=== PATIENT | female | born 1955 | race Caucasian/White ===

== ENCOUNTER → 2016-09-20 | Outpatient (CLI) | payer MEDICARE | END | disposition home or self-care (01) | LOC: LABPAT 09:04 | PROVIDERS: ATTEND Orthopaedic Surgery | DX: Z01.812 Encounter for preprocedural laboratory examination (principal) | CPT/HCPCS: 87070 ==

== ENCOUNTER 2016-10-22 09:53 | Inpatient (IN) | payer MEDICARE ==
[2016-10-15 11:59] VITALS: BMI 29.1
--- NOTE | 2016-10-21 12:01 | HP ---
DATE OF ADMISSION: 10/22/2016 Gabby Sanchez is a 61-year-old patient seen with symptomatic right knee osteoarthritis. After having treatment options discussed, she elected to proceed with right total knee arthroplasty. Consent was obtained. Medical clearance was provided by Dr. Sheldon. Past medical history is hypothyroidism, osteoarthritis, seizure disorder. Past surgical history is spinal surgery. DAILY MEDICATIONS: 1. Aspirin. 2. Dilantin. 3. Tegretol. 4. Thyroid. Allergies are none reported. SOCIAL HISTORY: Patient denies tobacco use. Physical evaluation of the right knee: Range of motion is -3/4 to 95 degrees, tenderness along the lateral joint line with a positive lateral Gema's. There is crepitus along the patellofemoral and lateral compartments with range of motion. Ligaments are stable. Hip rotation is without pain. Distal neurovascular exam is intact. Radiographs of the right knee revealed severe lateral moderate patellofemoral compartment osteoarthritis. IMPRESSION: Right knee osteoarthritis. PLAN: Right total knee arthroplasty.
[~2016-10-22 09:53] MED LIST: ACETAMINOPHEN TAB 500 MG TAB PO ONE; DEXAMETHASONE SOD PHOSPHATE 10 MG/ML 1 ML VIAL IV ONE; LACTATED RINGERS 1,000 ML IV SCH; MELOXICAM 7.5 MG TAB PO ONE; ONDANSETRON 4 MG/2 ML VIAL IVP ONE; SCOPOLAMINE 1.5MG/72HR PATCH TRANSDERM ONE; TRANEXAMIC ACID 1,000 MG in SODIUM CHLORIDE 0.9% 100 ML IVPB ONE; fentaNYL (PF) 50 MCG/ML 2 ML AMP IV PRN
[2016-10-22] MEDS ORDERED: LIDOCAINE 1% 20 ML VIAL (10MG/ML) FOR IV START INTRADERMA ONE (10:40)
[2016-10-22] MEDS: MIDAZOLAM 2 MG/2 ML VIAL IV PRN ×2 (11:04→11:11)
[2016-10-22] MEDS ORDERED: ROPIVACAINE 1,100 MG, SODIUM CHLORIDE 0.9% 330 ML MISCELLANE PRN ×2 (11:19)
--- NOTE | 2016-10-22 11:21 | P.ONQ ---
Anesthesiology Proc Note - PNB - Peripheral Nerve Block Performed Right Adductor Canal Time Out Performed: Yes Procedure Start Time: 11:00 Procedure Stop Time: 11:30 Indication: Analgesia Sedation Type: Sedate with meaningful contact maintained Preparation: Sterile Prep Position: Supine Catheter: Indwelling Needle Types: On-Q Needle Size: 50mm (2") Needle Gauge: 18 Technique: Ultrasound Injectate: 0.5% Ropivacaine (see comment for volume) Blood Aspirated: No Pain Paresthesia on Injection Noted: No Resistance on Injection: Normal Events: Uneventful and Well Tolerated
[2016-10-22] MEDS ORDERED: SODIUM CHLORIDE 0.9% 100 ML BAG ONE (12:52)
[2016-10-22] MEDS ORDERED: PROPOFOL 10 MG/ML 20 ML VIAL IV ONE (12:52)
[2016-10-22] MEDS ORDERED: LIDOCAINE 1% INJ 10MG/ML (20 ML MDV) ONE (12:52)
[2016-10-22] MEDS ORDERED: TRANEXAMIC ACID 1,000 MG/10 ML VIAL ONE (12:52)
[2016-10-22] MEDS ORDERED: fentaNYL (PF) 50 MCG/ML 2 ML AMP ONE (12:52)
[2016-10-22] MEDS ORDERED: diphenhydrAMINE 50 MG/ML 1 ML VIAL ONE (12:52)
[2016-10-22] MEDS ORDERED: MIDAZOLAM 2 MG/2 ML VIAL ONE (12:52)
[2016-10-22] MEDS ORDERED: ROPIVACAINE 246.25 MG, EPINEPHrine 0.5 MG, KETOROLAC 30 MG, cloNIDine HCL/PF 80 MCG, WA... MISCELLANE ONE ×5 (12:59)
[2016-10-22] MEDS: ceFAZolin 2 GM in SODIUM CHLORIDE 0.9% 100 ML IVPB ONE ×2 (13:12→13:36)
[2016-10-22] MEDS: ROPIVACAINE 246.25 MG, EPINEPHrine 0.5 MG, KETOROLAC 30 MG, cloNIDine HCL/PF 80 MCG, WA... MISCELLANE ONE ×10 (13:29→14:11)
[2016-10-22] MEDS ORDERED: ceFAZolin 3,000 MG in SODIUM CHLORIDE 0.9% IRRIGATIO 3,000 ML IRRIGATION ONE (13:32)
[2016-10-22] MEDS ORDERED: LACTATED RINGERS 1,000 ML IV ONE ×2 (13:54→15:28)
--- NOTE | 2016-10-22 14:58 | P.OP ---
Date of Procedure: 10/22/16 Preoperative Diagnosis: Right knee osteoarthritis Postoperative Diagnosis: Right knee osteoarthritis Procedure(s) Performed: Right total knee arthroplasty Implants: 1. Nida persona size 6 right narrow cruciate retaining cemented femoral component 2. Nida persona size D right cemented tibial component 3. Nida persona 10 mm medial congruent 4. Nida persona 35 mm cemented all polyethylene patella Anesthesia: regional (Adductor canal block), local, spinal Surgeon: Siddahrth Barrera [employer] Stewardess #1: Flavio Bailey Estimated Blood Loss (ml): 125 Pathology: none sent Condition: stable Disposition: PACU Indications for Procedure: 61-year-old patient seen with symptomatic right knee osteoarthritis. After having treatment options discussed, she elected to proceed with right total knee arthroplasty. Operative Findings: see description of procedure Description of Procedure: Patient was taken to the operative suite after having an adductor canal block performed by the department of anesthesia. Patient underwent a spinal anesthetic by the department of anesthesia. Patient was given preoperative IV intake antibiotics and TXA. A well-padded tourniquet was placed about the right lower extremity. The lower extremity was then prepped and draped in the normal sterile orthopedic fashion. The extremity was elevated, a tourniquet was insufflated to 350. A standard anterior incision was made sharply through skin. Dissection was taken down through the subcutaneous soft tissues down to the extensor mechanism. A medial arthrotomy was performed, patella was everted and knee was flexed. There was advanced osteoarthritis noted. A proximal tibial cutting guide was positioned. Proximal tibial cut was made. A distal intramedullary femoral cutting guide was positioned, distal femoral cut made. We placed the appropriate sizing guide and selected the appropriate size. A distal 4-in-1 femoral cutting block was positioned, distal femoral cuts were made. We now placed a trial femoral component into position, along with an appropriate size tibial tray and insert. We now took the knee through range of motion and had full extension good flexion and good overall soft tissue balance noted. The patella was everted and a flush cut made with patellar quad tendon. We templated the patella, appropriate drill holes were made. An appropriate trial patella was positioned, knee was taken through full range of motion with the patella tracking very nicely. The trial patella was removed. Drill holes were made through the femoral component. All trial components were removed after marking off the appropriate rotation of the tibia. Retractors were now positioned along the proximal tibia. An appropriate keel punch was made with the appropriate size tibial guide. At this point appropriate size implants were chosen and opened. The joint was irrigated copiously with pulse lavage mechanical irrigation. The deep soft tissues were infiltrated with local analgesic. We mixed antibiotic methylmethacrylate. Once the methyl methacrylate was ready, the tibial component was cemented into place removing any excess methylmethacrylate. The femoral component was cemented into place removing the removing any excess methylmethacrylate. We then inserted the appropriate size polyethylene tibial insert. We made sure that it was locked into position. We took the knee into full extension, and then back in a flexion making sure we had removed any excess methylmethacrylate. The patellar component was then cemented down and secured with clamp. Excess methylmethacrylate removed. We kept the knee in full extension, patellar clamp in position until methylmethacrylate had hardened. Once it had hardened the patellar clamp was removed. The knee was taken through full range of motion. The patella tracked nicely. There was good soft tissue balancing. The tourniquet was now released. Additional hemostasis was achieved via electrocautery. A second gram of TXA was given. The wound was irrigated with pulse lavage mechanical irrigation. The superficial soft tissues were infiltrated local analgesic. The extensor mechanism was repaired with Vicryl. We checked the repair with range of motion and it was stable. The subcutaneous soft tissues were repaired with Vicryl in layers. The skin was approximated with pernio/Dermabond. Sterile dressings were applied followed by loose web roll and Conner bandage. The patient was transferred to a bed, and taken to recovery in stable and satisfactory condition. Flavio VAUGHN assisted with the procedure.
[2016-10-22] MEDS ORDERED: ONDANSETRON 4 MG/2 ML VIAL IVP PRN (14:59)
[2016-10-22] MEDS ORDERED: HYDROcodone/APAP 7.5-325MG 1 EACH TAB PO PRN (14:59)
[2016-10-22] MEDS ORDERED: hydrOXYzine PAMOATE 25 MG CAP PO PRN (14:59)
[2016-10-22] MEDS ORDERED: HYDROmorphone 1 MG/ML 1 ML SYRINGE IVP PRN ×3 (14:59)
[2016-10-22] MEDS ORDERED: TEMAZEPAM 15 MG CAP PO PRN (14:59)
[2016-10-22] MEDS ORDERED: NALOXONE 0.4 MG/ML 1 ML VIAL IV PRN (14:59)
[2016-10-22] MEDS ORDERED: ROPIVACAINE 5 MG/ML 30 ML VIAL MISCELLANE ONE (15:28)
[2016-10-22 15:51] VITALS: RESP 16
--- NOTE | 2016-10-22 15:54 | XR ---
EXAMINATION TYPE: XR knee limited RT DATE OF EXAM: 10/22/2016 3:49 PM CLINICAL HISTORY: Postoperative evaluation Two views of the right knee are submitted. Identified are changes of total knee arthroplasty with femoral and tibial components appearing well seated. Postsurgical soft tissue changes are noted. Alignment is anatomic.
[2016-10-22] MEDS ORDERED: ACETAMINOPHEN TAB 500 MG TAB PO PRN (16:34)
[2016-10-22] MEDS ORDERED: PHENYTOIN SODIUM EXTENDED 100 MG CAP PO SCH ×2 (16:45→21:00)
[2016-10-22] MEDS ORDERED: LEVOTHYROXINE 75 MCG TAB PO SCH (16:45)
[2016-10-22] MEDS: traMADol 50 MG TAB PO SCH ×2 (19:14→23:41)
[2016-10-22] MEDS: LACTATED RINGERS 1,000 ML IV SCH ×2 (19:14→19:15)
[2016-10-22] MEDS: SENNOSIDES-DOCUSATE SODIUM 1 EACH TAB PO SCH (20:21)
[2016-10-22] MEDS ORDERED: carBAMazepine 200 MG TAB PO SCH (21:00)
[2016-10-22] MEDS: DILANTIN 100MG PO SCH (21:08)
[2016-10-22] MEDS: CARBAMAZEPINE 200 MG PO SCH (21:08)
[2016-10-22] MEDS: ceFAZolin 2 GM in SODIUM CHLORIDE 0.9% 100 ML IVPB SCH (23:35)
[2016-10-23] MEDS: LEVOTHYROXINE 0.075 MG PO SCH (05:20)
[2016-10-23] MEDS: CARBAMAZEPINE 200 MG PO SCH ×2 (07:07→20:08)
[2016-10-23] MEDS: DILANTIN 100MG PO SCH ×2 (07:07→20:09)
[2016-10-23 07:36] LABS: Basophils % (A) 0 %; CH 31.9; CHCM 34.1; Eosinophils # (A) 0.1 k/uL (0-0.7); Eosinophils % (A) 1 %; HCT 35.7 % (34.0-46.0); HDW 2.46; Luc # (Auto) 0.06; Luc % (Auto) 1; Lymphocytes # (A) 0.7 k/uL (1.0-4.8); Lymphocytes % (A) 9 %; MCH 31.5 pg (25.0-35.0); MCHC 33.5 g/dL (31.0-37.0); MCV 93.8 fL (80.0-100.0); Mean Platelet Volume 6.6; Monocytes # (A) 0.5 k/uL (0-1.0); Monocytes % (A) 6 %; Neutrophils # (A) 6.4 k/uL (1.3-7.7); Neutrophils % (A) 83 %; RDW 12.8 % (11.5-15.5); WBC 7.7 k/uL (3.8-10.6); WBC (Perox) 8.32
[2016-10-23] MEDS: ceFAZolin 2 GM in SODIUM CHLORIDE 0.9% 100 ML IVPB SCH (08:20)
[2016-10-23] MEDS: FAMOTIDINE 20 MG TAB PO SCH (08:20)
[2016-10-23] MEDS: ENOXAPARIN 30 MG/0.3 ML SYRINGE SQ SCH ×2 (08:20→20:08)
[2016-10-23] MEDS: MELOXICAM 7.5 MG TAB PO SCH (08:21)
[2016-10-23] MEDS: HYDROcodone/APAP 7.5-325MG 1 EACH TAB PO PRN ×3 (08:21→20:08)
--- NOTE | 2016-10-23 09:10 | CONS ---
DATE OF CONSULTATION: REASON FOR CONSULTATION: Advice regarding hypothyroidism, seizure disorder and multiple medical issues requested by Dr. Barrera. HISTORY OF PRESENT ILLNESS: This 61-year-old woman with a past history of seizures, hypothyroidism, history back surgery, DJD being followed by Dr. Sheldon in the outpatient setting underwent right total knee arthroplasty by Dr. Barrera. The patient tolerated the procedure well. There is no history of fever, rigors. No history of headache, loss of consciousness, seizures. Of note, the patient has had recurrent seizures. The patient has allergies to multiple ingredients and additives. Patient apparently is on the antiepileptic medication including Dilantin as well as carbamazepine. The last seizure was about a few months back. There is no history of fevers, rigors. No history of history, loss of consciousness, seizure. PAST MEDICAL HISTORY: History of seizures, history of hypothyroidism, history of epilepsy, history of back surgery, DJD. Medications prior to admission, including home medications, are: 1. Tylenol 500 mg q.6 p.r.n. 2. Tegretol 400 mg p.o. b.i.d. 3. Dilantin 100 mg p.o. daily and 300 mg q.h.s. 4. Synthroid 75 mg p.o. daily. ALLERGIES: CARBAMAZEPINE, PHENYTOIN, PRIMIDONE, VALPROIC ACID, HYDROMORPHONE, ARTIFICIAL FLAVORING, ASPIRIN, MSG AND NARCOTICS. FAMILY HISTORY: History of cancer in the family. SOCIAL HISTORY: No history of smoking, no history of alcohol. REVIEW OF SYSTEMS: ENT: No diminished vision. No diminished hearing. CARDIOVASCULAR: No angina. RESPIRATORY: No cough or hemoptysis. GI: No nausea. : No dysuria. NERVOUS SYSTEM: No numbness or weakness. ALLERGY/IMMUNOLOGY: No asthma or hayfever. MUSCULOSKELETAL: As mentioned earlier. HEMATOLOGY: No history of anemia. ENDOCRINE: As mentioned earlier. CONSTITUTIONAL: As mentioned earlier. DERMATOLOGY: Negative. RHEUMATOLOGY: As mentioned earlier. PHYSICAL EXAMINATION: Patient is alert and oriented x3. Pulse 88, blood pressure 115/56, respirations 16, temperature 97 degrees, pulse ox 97% on room air. HEENT: Conjunctivae normal. NECK: No jugular venous distention. CARDIOVASCULAR: S1 and S2. RESPIRATORY: Breath sounds diminished at the bases. No rhonchi, no crackles. ABDOMEN: Soft, nontender, no mass palpable. LEGS: Status post right knee arthroplasty. NERVOUS SYSTEM: Higher function as mentioned. Moves all four limbs. No focal motor deficits. LYMPHATIC: No lymphadenopathy in the neck, axillae or groin. SKIN: No ulcer, rash or bleeding. Labs are CBC recently done within normal limits. PT, INR normal. BMP shows magnesium 2.4, alk phos 130, triglycerides 169, cholesterol 267, LDL is 183. UA shows was reviewed. The phenytoin level was 11.4 and 6.7. ASSESSMENT: 1. Status post right total knee arthroplasty. 2. Seizure disorder. 3. Hypothyroidism. 4. Hyperlipidemia. 5. Back surgery. 6. Cholecystectomy. 7. History of brain surgery for seizure disorder. 8. Right shoulder arthroplasty. RECOMMENDATIONS AND DISCUSSION: In this 61-year-old woman who presented after surgery, at this time I recommend to reinstitute the home medication of Dilantin and Tegretol. I would also recommend the patient to take patient's own medications because of concerns of additives and other issues. The patient also reports significant allergy to food additives and I also recommended to check with dietary and continue to monitor. Otherwise, I would recommend the patient to follow up with Dr. Sheldon regarding the hyperlipidemia. Otherwise, we will follow the patient closely with you and the patient may be asked to follow up with Dr. Sheldon after discharge. Thank you Dr. Barrera for letting us participate in the care of this patient. DVT prophylaxis. Incentive spirometry as well. MTDD
[2016-10-23] MEDS: LACTATED RINGERS 1,000 ML IV SCH ×2 (10:24→18:28)
--- NOTE | 2016-10-23 11:51 | P.PN ---
Subjective Principal diagnosis: Status post right total knee arthroplasty Patient is seen today resting in her hospital chair, she appears to be in no acute distress. Patient's pain is well-controlled with current regimen. She is ambulated well with therapy. She denies headaches, lightheadedness, chest pain, shortness of breath, nausea or vomiting. Objective - Vital Signs Vital signs: Vital Signs Temp 97.7 F 10/23/16 07:00 Pulse 78 10/23/16 08:00 Resp 16 10/23/16 08:00 BP 127/60 10/23/16 07:00 Pulse Ox 97 10/23/16 07:00 Intake & Output 10/22/16 10/23/16 10/23/16 18:59 06:59 18:59 Intake Total 5580 1200 240 Output Total 400 1100 275 Balance 5180 100 -35 Weight 79.379 kg 79.379 kg Intake: IV 5100 1200 Lactated Ringers 1,000 ml 1200 @ 100 mls/hr IV .Q10H FATUMA Rx#:[id number] Oral 480 240 Output: Urine 275 1100 275 Uretheral (Ryan) 1100 Estimated Blood Loss 125 Other: Voiding Method Indwelling Catheter Indwelling Catheter Indwelling Catheter - Exam Right lower extremity: Incision is clean, dry and intact. Minimal ecchymosis present on the medial and lateral aspects of the incision. Calf is soft, no tenderness with palpation. Plantar flexion, dorsiflexion, EHL, FHL are intact. Sensory exam to light touch throughout the extremities intact. Cap refills less than 3 seconds. - Labs CBC & Chem 7: 10/23/16 07:02 Labs: Abnormal Lab Results - Last 24 Hours (Table) 10/23/16 Range/Units 07:02 Lymphocytes # 0.7 L (1.0-4.8) k/uL Assessment and Plan Plan: Assessment: 1. Postop day #1 status post right total knee arthroplasty Plan: 1. Pain control, we'll discharge home on oral medication 2. Will have home therapy and CPM after discharge 3. Daily dressing changes/ice and elevate 4. GI and DVT prophylaxis, we'll discharge home on aspirin 325 mg twice a day 5. Medical recommendations 6. Discharge planning: Patient will be discharged home today Time with Patient: Less than 30
[2016-10-23] MEDS: MULTIVITAMINS, THERA 1 EACH TAB PO SCH (12:27)
[2016-10-23] MEDS: traMADol 50 MG TAB PO SCH ×4 (12:27→21:05)
--- NOTE | 2016-10-23 15:09 | PN ---
DATE OF SERVICE: 10/23/2016 This is a 61-year-old woman who was admitted after right total knee arthroplasty, improving significantly. No chest pain or palpitations. No fever. On exam, alert and oriented x3. Pulse 78, blood pressure 127/60, respirations 16, temperature 97.7, pulse ox 96% on room air. HEENT: Conjunctivae normal. NECK: No jugular venous distension. CARDIOVASCULAR SYSTEM: S1, S2, muffled. RESPIRATORY: Breath sounds diminished at the bases, no rhonchi, no crackles. ABDOMEN: Soft. EXTREMITIES: Legs status post right knee arthroplasty. NERVOUS SYSTEM: No focal deficits. Labs are CBC within normal limits. ASSESSMENT: 1. Status post right total knee arthroplasty. 2. Seizure disorder. 3. Hypothyroidism. 4. Hyperlipidemia. 5. History of back surgery. 6. History of cholecystectomy. 7. History of brain surgery for seizure disorder. 8. Right shoulder arthroplasty. RECOMMENDATION AND DISCUSSION: Recommend to continue current medications. Continue with the monitoring and symptomatic treatment. Otherwise, closely follow with the primary physician in the outpatient setting. Resume the home medications. Continue the antiseizure medications. Further recommendations to follow.
[2016-10-23] MEDS: SENNOSIDES-DOCUSATE SODIUM 1 EACH TAB PO SCH (20:09)
[2016-10-24 01:47] VITALS: PULSE 90
[2016-10-24] MEDS: HYDROcodone/APAP 7.5-325MG 1 EACH TAB PO PRN (02:17)
[2016-10-24] MEDS: LACTATED RINGERS 1,000 ML IV SCH (05:46)
[2016-10-24] MEDS: LEVOTHYROXINE 0.075 MG PO SCH (05:47)
[2016-10-24] MEDS: CARBAMAZEPINE 200 MG PO SCH (06:32)
[2016-10-24] MEDS: DILANTIN 100MG PO SCH (06:33)
[2016-10-24 07:44] VITALS: BP 129/80; TEMP 98.4
[2016-10-24] MEDS: FAMOTIDINE 20 MG TAB PO SCH (08:22)
[2016-10-24] MEDS: ENOXAPARIN 30 MG/0.3 ML SYRINGE SQ SCH (08:22)
[2016-10-24] MEDS: MELOXICAM 7.5 MG TAB PO SCH (08:23)
--- NOTE | 2016-10-24 09:22 | P.PN ---
Progress Note - Text The patient is status post right adductor canal catheter placement. The catheter was placed for postoperative pain control, status post total right arthroplasty. Ropivacaine 0.2% is infusing at 10 mLs per hour. The patient has no complaints of right lower extremity numbness or weakness. Patient's VAS score is[ 2-3]-10. Assessment: Patient's adductor canal catheter is in place and working appropriately. Plan: continue infusion and adjust it as needed.
[2016-10-24] MEDS: traMADol 50 MG TAB PO SCH ×2 (10:19→12:31)
--- NOTE | 2016-10-24 11:43 | P.PN ---
Subjective Principal diagnosis: Status post right total knee arthroplasty Patient is seen today resting in her hospital chair, she appears to be in no acute distress. Patient's pain is well-controlled with current regimen. She is ambulated well with therapy. Patient has noticed slight increase in swelling in the lower extremity. She denies headaches, lightheadedness, chest pain, shortness of breath, nausea or vomiting. Objective - Vital Signs Vital signs: Vital Signs Temp 98.4 F 10/24/16 07:00 Pulse 90 10/24/16 07:35 Resp 16 10/24/16 07:35 BP 129/80 10/24/16 07:00 Pulse Ox 95 10/24/16 07:00 Intake & Output 10/23/16 10/24/16 10/24/16 18:59 06:59 18:59 Intake Total 480 400 Output Total 277 1 Balance 203 400 -1 Weight 79.379 kg 79.379 kg Intake: Oral 480 400 Output: Urine 277 1 Other: Voiding Method Indwelling Catheter Toilet Toilet # Voids 1 3 3 - Exam Right lower extremity: Incision is clean, dry and intact. Minimal ecchymosis present on the medial and lateral aspects of the incision. Soft tissue swelling noted surrounding the knee, also into the calf . Calf is soft, no tenderness with palpation. Plantar flexion, dorsiflexion, EHL, FHL are intact. Sensory exam to light touch throughout the extremities intact. Cap refills less than 3 seconds. - Labs CBC & Chem 7: 10/23/16 07:02 Assessment and Plan Plan: Assessment: 1. Postop day #2 status post right total knee arthroplasty Plan: 1. Pain control, will continue oral medication 2. Will have home therapy and CPM after discharge 3. Daily dressing changes/ice and elevate 4. GI and DVT prophylaxis, we'll discharge home on aspirin 325 mg twice a day 5. Medical recommendations 6. We'll order lower extremity Doppler to rule out DVT 7. Discharge planning: Patient will be likely discharged home today Time with Patient: Less than 30
--- NOTE | 2016-10-24 11:46 | P.DS ---
Providers Date of admission: 10/22/16 09:53 Expected date of discharge: 10/24/16 Attending physician: Siddharth Barrera Consults: 10/22/16 14:59 Consult Physician Routine Consulting Provider: Kristie Juan Consult Reason/Comments: Medical management Do you want consulting provider notified?: Yes Primary care physician: Stated None Hospital Course: Date of admission: 10/22/2016 Date of discharge: 10/24/2016 Admission diagnosis: Status post right total knee arthroplasty Discharge diagnosis: Same Attending physician: Dr. Barrera Surgical procedures: Right total knee arthroplasty Brief history: Patient is a 61-year-old female with a history of progressive primary right knee osteoarthritis. At this point patient has failed conservative treatment measures and has opted to proceed with a elective right total knee arthroplasty. Hospital course: Details of patient's surgery can be found in operative report. Patient tolerated the procedure well and was subsequently transported to orthopedic floor. Patient's orthopeidc and medical care was provided daily. Patient had daily laboratory tests performed for evaluation of overall blood counts. Patient had daily physical therapy to include strengthening range of motion as well as education with walker ambulation. Patient had daily CPM usage as part of their physical therapy program. Patient was treated with Lovenox for their postoperative DVT prophylaxis during their inpatient stay. Patient was noted to have a relatively uneventful postoperative course. Patient reported satisfactory pain control with oral pain medications by postoperative day 0. Patient showed satisfactory progress with physical therapy. Patient moved steadily through the program and had no difficulty meeting the goals by postoperative day 2. Given patient's otherwise satisfactory course and having met physical therapy goals, plan is to discharge patient home on postoperative day 2. Discharge condition/disposition: Patient will be discharged home in stable condition. Discharge medications: Instructions are given on resumption of patient's normal daily medications per primary care recommendation, in addition patient will be prescribed [place] 7.5 mg/325 mg, Pepcid 20 mg, Colace 100 mg, aspirin 325 mg. Discharge instructions: 1. Wound care and infection precautions, keep incision dry and covered while showering, no lotions, creams, moisturizers. No soaking, tubs, pools, hottubs. Do not scrub over the incision. 2. Weight-bear as tolerated with walker / cane until follow-up. 3. Ice and elevate when necessary. Do not exceed 20 minutes per hour with ice pack. 4. Utilize compression sleeve until seen at first follow up appointment. 5. Visiting nursing care. 6. Home physical therapy including home CPM. 7. Pain meds and anticoagulants per prescription. 8. Pain medication has potential to cause constipation. Increase oral fluid and fiber intake. Contact primary care provider if you have not had a bowel movement within 48 hours after discharge 9. No anti-inflammatory medication until discussed at first post operative visit, this including Motrin, Aleve, Mobic, Diclofenac. 10. Follow up in office at 2 weeks postop with Anselmo Bailey PA-C 11. Follow up with your primary care doctor 7-10 days after discharge. 12. Contact [facility] with any questions, . Procedures: Right total knee arthroplasty Patient Condition at Discharge: Good Plan - Discharge Summary New Discharge Prescriptions: Aspirin 325 mg PO BID #60 tab Docusate [Colace] 100 mg PO DAILY #20 capsule Famotidine [Pepcid] 20 mg PO DAILY #30 tablet HYDROcodone/APAP 7.5-325MG [[place] 7.5] 1 each PO Q6HR PRN #60 tab PRN Reason: Pain Discharge Medication List Phenytoin Sodium Extended [Dilantin] 300 mg PO HS 07/27/14 [History] carBAMazepine [TEGretol] 400 mg PO BID 07/27/14 [History] Levothyroxine Sodium [Synthroid] 75 mcg PO DAILY 01/02/16 [History] Phenytoin Sodium Extended [Dilantin] 100 mg PO DAILY 01/02/16 [History] Acetaminophen [Tylenol] 500 mg PO Q6H PRN 10/15/16 [History] Aspirin 325 mg PO BID #60 tab 10/23/16 [Rx] Docusate [Colace] 100 mg PO DAILY #20 capsule 10/23/16 [Rx] Famotidine [Pepcid] 20 mg PO DAILY #30 tablet 10/23/16 [Rx] HYDROcodone/APAP 7.5-325MG [[place] 7.5] 1 each PO Q6HR PRN #60 tab 10/23/16 [Rx] Follow up Appointment(s)/Referral(s): Flavio Bailey PAC [PHYSICIAN [facility]] - 11/07/16 2:00 pm Patient Instructions/Handouts: Joint Replacement Surgery (DC) Activity/Diet/Wound Care/Special Instructions: [facility] - walk[facility] to be delivered to pt room. [facility] with any questions [phone] Orthopedic Discharge Instructions: 1. Wound care and infection precautions, keep incision dry and covered while showering, no lotions, creams, moisturizers. No soaking, pools, hot tubs. Do not scrub over incision. 2. Weight-bear as tolerated with walker / cane until follow-up. 3. Ice and elevate when necessary. Do not exceed 20 minutes per hour with ice pack. 4. Utilize compression sleeve until seen at first follow up appointment. 5. Visiting nursing care. 6. Home physical therapy including home CPM. 7. Pain meds and anticoagulants per prescription. 8. Pain medication has potential to cause constipation. Increase oral fluid and fiber intake. Contact primary care provider if you have not had a bowel movement within 48 hours after discharge. 9. No anti-inflammatory medication until discussed at first post operative visit, this including Motrin, Aleve, Mobic, Diclofenac. 10. Follow up in office at 2 weeks postop with Anselmo Bailey PA-C 11. Follow up with your primary care doctor 7-10 days after discharge. 12. Contact [facility] with any questions, . Pain catheter instructions: 1. Home nursing please remove pain catheter on 10/25/2016, okay to remove on if empty Discharge Disposition: HOME WITH HOME HEALTH SERVICES
--- NOTE | 2016-10-24 12:16 | US ---
EXAMINATION TYPE: US venous doppler duplex LE RT DATE OF EXAM: 10/24/2016 12:08 PM COMPARISON: NONE CLINICAL HISTORY: post op swelling. SIDE PERFORMED: VESSELS IMAGED: External Iliac Vein (EIV) Common Femoral Vein Deep Femoral Vein Greater Saphenous Vein * Femoral Vein Popliteal Vein Small Saphenous Vein * Proximal Calf Veins (* superficial vessels) TECHNOLOGIST IMPRESSION: wnl Right Leg: Negative for DVT No popliteal fossa lesion is seen. IMPRESSION: THIS EXAMINATION IS NEGATIVE FOR DVT WITHIN THE RIGHT LEG.
[2016-10-24] MEDS: MULTIVITAMINS, THERA 1 EACH TAB PO SCH (12:31)
--- NOTE | 2016-10-24 16:24 | PN ---
This 61-year-old woman was admitted after right total knee joint arthroplasty is improving significantly. The patient has right leg swelling. No chest pain. No palpitations. No fever. On exam, alert and oriented x3. Pulse 86, blood pressure 109/80, respirations 16, temperature 98.4, pulse ox 94% on room air. HEENT: Conjunctivae normal. NECK: No jugular venous distention. CARDIOVASCULAR: S1, S2 muffled. RESPIRATORY: Breath sounds diminished at the bases. ABDOMEN: Soft. Right leg swelling and right knee arthroplasty present. Nervous system: No focal deficits. Labs are noted. ASSESSMENT: 1. Status post right total knee arthroplasty. 2. Seizure disorder. 3. Hypothyroidism. 4. Hyperlipidemia. 5. History of back surgery. 6. Cholecystectomy. 7. History of brain surgery seizure disorder. 8. Right shoulder arthroplasty. RECOMMENDATIONS AND DISCUSSION: Recommend to continue current medications. Continue with monitoring, symptomatic treatment. I would also recommend of the leg and resume the rest of the medications at home. I would recommend close follow up with primary physician in outpatient setting. Resume the seizure medications. The rest of the recommendations per orthopedic surgery. MTDD
== END 2016-10-24 14:05 | disposition home health service (06) | DRG 470 ==
LOC: 2ORMAIN 09:53 → 3SUR 14:51
PROVIDERS: ADMIT Orthopaedic Surgery; ATTEND Orthopaedic Surgery
PROC: 3E0T3CZ (ICD-10-PCS; 2016-10-22)
PROC: 0SRC0J9 Replacement of Right Knee Joint with Synthetic Substitute, Cemented, Open Approach (ICD-10-PCS; principal; 2016-10-22 12:40)
DX: M17.11 Unilateral primary osteoarthritis, right knee (principal); E03.9 Hypothyroidism, unspecified; E78.5 Hyperlipidemia, unspecified; G40.909 Epilepsy, unspecified, not intractable, without status epilepticus; Z90.49 Acquired absence of other specified parts of digestive tract; Z96.611 Presence of right artificial shoulder joint; Z79.899 Other long term (current) drug therapy
CPT/HCPCS: 85025; 88300

== ENCOUNTER → 2017-03-18 | Outpatient (CLI) | payer MEDICARE ==
--- NOTE | 2017-03-18 13:31 | XR ---
EXAMINATION TYPE: XR foot complete LT DATE OF EXAM: 03/18/2017 CLINICAL HISTORY: Foot in particular first toe pain swelling after injury last week. Cellulitis per o rder. TECHNIQUE: Frontal, lateral, and oblique images of the left foot are obtained. COMPARISON: None FINDINGS: Osseous structures are demineralized which is noted to lower radiographic sensitivity. There is acute oblique nondisplaced intra-articular fracture through the medial dorsal aspect of the first proximal phalanx. There is additional comminuted acute nondisplaced intra-articular fracture through the base of the fi rst distal phalanx seen on frontal and oblique images with linear lucency and cortical disruption pre sent. Joint spaces are preserved. There is mild diffuse subcutaneous edema with slightly more prominent mod erate swelling in the left first toe. There is large inferior calcaneal spur. IMPRESSION: There are acute intra-articular fractures involving base of first distal phalanx and do rsal medial aspect of first proximal phalanx. Ordering physician assistant sales center manager made aware of fracture findings at time of dictation. (Initial encounter close type post traumatic fracture).
== END ==
LOC: RADXRYALE 10:44
PROVIDERS: ATTEND Physician Assistant Medical
DX: S92.422A Displaced fracture of distal phalanx of left great toe, initial encounter for closed fracture (principal); S92.412A Displaced fracture of proximal phalanx of left great toe, initial encounter for closed fracture

== ENCOUNTER → 2017-06-05 | Outpatient (CLI) | payer MEDICARE ==
--- NOTE | 2017-06-06 11:03 | MM ---
Reason for exam: screening (asymptomatic). Last mammogram was performed 1 year ago. History: Patient is postmenopausal and is nulliparous. Family history of breast cancer in mother at age 64, breast cancer in sister at age 30, and breast cancer in paternal cousin. Physical Findings: A clinical breast exam by your physician is recommended on an annual basis and results should be correlated with mammographic findings. MG Screening Mammo w CAD Bilateral CC and MLO view(s) were taken. Prior study comparison: June 04, 2016, bilateral MG 3d screening mammo w/cad. June 07, 2015, bilateral MG screening mammo w CAD. May 29, 2013, bilateral digital screening mammo w/CAD. The breast tissue is heterogeneously dense. This may lower the sensitivity of mammography. No suspicious abnormality. No significant changes when compared with prior studies. ASSESSMENT: Negative, BI-RAD 1 RECOMMENDATION: Routine screening mammogram of both breasts in 1 year.
== END | disposition home or self-care (01) ==
LOC: RADMAMWWP 07:45
PROVIDERS: ATTEND Family Medicine
DX: Z12.31 Encounter for screening mammogram for malignant neoplasm of breast (principal)

== ENCOUNTER 2017-09-12 10:37 | Day surgery (SDC) | payer MEDICARE ==
[2017-09-04 23:22] VITALS: BMI 25.8
--- NOTE | 2017-09-11 15:39 | HP ---
HISTORY AND PHYSICAL DATE OF SERVICE: 09/12/2017 Gabby Sanchez is a 62-year-old patient seen with progressive left knee pain. After having treatment options discussed, she elected to proceed with left knee arthroscopy. Consent regarding the procedure was obtained. Medical clearance was provided by Dr. Sheldon. PAST MEDICAL HISTORY: Hypothyroidism, seizure activity. PAST SURGICAL HISTORY: Spinal surgery.. DAILY MEDICATIONS: 1. Dilantin. 2. Tegretol. 3. Thyroid. 4. Dorr. ALLERGIES: None reported. SOCIAL HISTORY: Patient denies current tobacco use. PHYSICAL EVALUATION: Left knee range of motion is 0 to 110 degrees. Tenderness medial joint line, tenderness lateral joint line. Positive medial Gema's. Positive lateral Gema's. There is crepitus along the medial, lateral and patellofemoral compartments with range of motion. Ligaments stable. Hip rotation without pain. Distal neurovascular exam is intact. RADIOGRAPHS: The left knee revealed moderate osteoarthritis. An MRI of the left knee revealed medial and lateral meniscal tears. IMPRESSION: Internal derangement, left knee with medial and lateral meniscal tears. PLAN: Left knee arthroscopy with partial medial and lateral meniscectomy as well as debridement. MMODL / IJN: [id number] /
[~2017-09-12 10:37] MED LIST changes: -ACETAMINOPHEN TAB 500 MG TAB PO ONE; +LIDOCAINE 1% 20 ML VIAL (10MG/ML) FOR IV START INTRADERMA PRN; -MELOXICAM 7.5 MG TAB PO ONE; +MIDAZOLAM 2 MG/2 ML VIAL IV PRN; +MORPHINE SULFATE 4 MG/ML SYRINGE IV PRN; -TRANEXAMIC ACID 1,000 MG in SODIUM CHLORIDE 0.9% 100 ML IVPB ONE; +ceFAZolin IN SWFI 2 GM/20 ML SYRINGE IVP ONE; -fentaNYL (PF) 50 MCG/ML 2 ML AMP IV PRN
[2017-09-12] MEDS ORDERED: SUCCINYLCHOLINE CHLORIDE 100 MG/5 ML SYR IV ONE (12:19)
[2017-09-12] MEDS ORDERED: PROPOFOL 10 MG/ML 20 ML VIAL IV ONE (12:19)
[2017-09-12] MEDS ORDERED: MIDAZOLAM 2 MG/2 ML VIAL ONE (12:19)
[2017-09-12] MEDS ORDERED: LIDOCAINE 1% INJ 10MG/ML (20 ML MDV) ONE (12:19)
[2017-09-12] MEDS ORDERED: fentaNYL (PF) 50 MCG/ML 2 ML AMP ONE (12:19)
[2017-09-12] MEDS ORDERED: BUPIVACAINE (PF) 0.25% 30 ML VIAL SQ ONE ×2 (12:47→13:00)
--- NOTE | 2017-09-12 13:22 | P.OP ---
Date of Procedure: 09/12/17 Preoperative Diagnosis: Internal derangement left knee Postoperative Diagnosis: 1. Tear medial and lateral meniscus left knee 2. 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 Grade 3 chondromalacia patella left knee 4. Partial ACL tear left knee 5. Reactive synovitis medial and suprapatellar compartments left knee Procedure(s) Performed: 1. Arthroscopic partial medial and lateral meniscectomy left knee 2. Arthroscopic chondroplasty medial tibial plateau left knee 3. Arthroscopic chondroplasty patella left knee 4. Arthroscopic debridement partial ACL tear left knee 5. Arthroscopic partial synovectomy medial and suprapatellar compartments left knee Anesthesia: JOHNA, local Surgeon: Siddharth Barrera Estimated Blood Loss (ml): 10 Pathology: none sent Condition: stable Disposition: PACU Indications for Procedure: 62-year-old patient seen with progressive left knee pain. After having treatment options discussed, she elected to proceed with arthroscopy. Operative Findings: see description of procedure Description of Procedure: Patient was taken to the operative suite. Patient underwent a general anesthetic by the department of anesthesia. Patient was given preoperative antibiotics. The left lower extremity was placed in a well-padded arthroscopic leg le. The left leg was prepped and draped in the normal sterile orthopedic fashion. A lateral parapatellar and suprapatellar incision was made. Trochars were inserted. Arthroscopy was initiated. Suprapatellar pouch revealed diffuse thick reactive synovitis. The patellofemoral joint appeared to articulate congruently. There was grade 3 chondromalacia of the patella with osteochondral tears present. The scope was guided into the medial gutter. No loose bodies or plica were identified. The scope was then guided into the medial compartment. A medial parapatellar incision was made. Trocar inserted followed by probe. There was a complex tear posterior horn medial meniscus. There were grade 2 chondromalacia changes of the tibial plateau with osteochondral tears present. There was reactive synovitis anteriorly. I performed a partial medial meniscectomy down to stable tissue. I performed a chondroplasty of the tibial plateau down to stable tissue followed by partial synovectomy. The residual meniscus and osteochondral surfaces were probed and found to be stable. Scope and probe were then guided into the intercondylar notch. Cruciates were identified, probed and found to have some superficial partial tearing of the anterior cruciate ligament. I used a motorized shaver and debrided that down to stable tissue. The remaining ACL appeared stable without 30-40% loss. PCL was stable.. The scope and probe were then guided into lateral compartment. There was superficial tearing of the anterior horn and midbody and posterior horn lateral meniscus. There was no chondromalacia or synovitis. I performed a partial lateral meniscectomy down to stable tissue. Once this was completed the meniscus was probed and found to be stable but there was some chondromalacia present of the tibial plateau, grade 2-3. No osteochondral tears. The scope was in guided back into the suprapatellar compartment. I introduced a motorized shaver into the super patellar compartment. I debrided meniscal fragments I encountered. I performed a chondroplasty of the patella down to stable tissue. I performed a partial synovectomy. Shaver was removed. I took one more look on the entire knee, no residual debris. Instruments were now removed from the joint. The joint was infiltrated with .25% Marcaine. Steri-Strips were applied to the portal sites. Sterile dressings were applied. The patient was placed into a EDNA hose. No tourniquet was utilized. The patient was awakened, transferred to a bed and taken to recovery stable satisfactory condition.
[2017-09-12 13:24] VITALS: TEMP 97.1
[2017-09-12] MEDS ORDERED: ONDANSETRON 4 MG/2 ML VIAL IVP ONE (13:31)
[2017-09-12] MEDS ORDERED: HYDROmorphone 2 MG/ML 1 ML SYRINGE IVP ONE ×2 (13:31→13:38)
[2017-09-12 13:33] VITALS: RESP 18
[2017-09-12] MEDS ORDERED: LACTATED RINGERS 1,000 ML IV ONE (13:46)
[2017-09-12 14:55] VITALS: BP 114/65; PULSE 52
== END 2017-09-12 15:17 | disposition home or self-care (01) ==
LOC: OR 10:37
PROVIDERS: ATTEND Orthopaedic Surgery
DX: S83.232A Complex tear of medial meniscus, current injury, left knee, initial encounter (principal); S83.282A Other tear of lateral meniscus, current injury, left knee, initial encounter; M94.262 Chondromalacia, left knee; M22.42 Chondromalacia patellae, left knee; S83.512A Sprain of anterior cruciate ligament of left knee, initial encounter; X58.XXXA Exposure to other specified factors, initial encounter; M65.862 Other synovitis and tenosynovitis, left lower leg; M17.12 Unilateral primary osteoarthritis, left knee; G40.909 Epilepsy, unspecified, not intractable, without status epilepticus; E03.9 Hypothyroidism, unspecified; E78.5 Hyperlipidemia, unspecified; Z79.1 Long term (current) use of non-steroidal anti-inflammatories (NSAID); Z79.899 Other long term (current) drug therapy; Z79.891 Long term (current) use of opiate analgesic; Z88.8 Allergy status to other drugs, medicaments and biological substances; Z88.6 Allergy status to analgesic agent; Z88.5 Allergy status to narcotic agent
CPT/HCPCS: 29880; J2250; J1170; J1100; J0690; J2405; J2001; J3010; J0330; J2704

== ENCOUNTER → 2017-12-03 | Outpatient (CLI) | payer MEDICARE ==
--- NOTE | 2017-12-03 12:36 | XR ---
EXAMINATION TYPE: XR lumbosacral spine min 4V DATE OF EXAM: 12/03/2017 COMPARISON: NONE HISTORY: Lumbago, pain left leg TECHNIQUE: Five-view lumbar spine FINDINGS: Spondylosis is present. There 5 lumbar-type vertebral bodies. The pedicles are intact. Ther e is a grade 1 spondylolisthesis of L4 anterior and L5. Posterior disc space narrowing is present L3- 4. IMPRESSION: 1. No acute osseous abnormality. 2. Spondylolisthesis of L4 anterior and L5. 3. Degenerative disc changes. 4. Consider MRI lumbar spine for additional evaluation of left leg pain.
== END ==
LOC: RADXRYALE 11:05
PROVIDERS: ATTEND Physician Assistant Medical
DX: M43.16 Spondylolisthesis, lumbar region (principal); M47.816 Spondylosis without myelopathy or radiculopathy, lumbar region
CPT/HCPCS: 72110

== ENCOUNTER → 2018-12-02 | Outpatient (CLI) | payer MEDICARE ==
--- NOTE | 2018-12-02 13:08 | MM ---
Reason for exam: screening (asymptomatic). Last mammogram was performed 1 year and 6 months ago. History: Patient is postmenopausal and is nulliparous. Family history of breast cancer in mother at age 64, breast cancer in sister at age 30, and breast cancer in paternal cousin. Physical Findings: A clinical breast exam by your physician is recommended on an annual basis and results should be correlated with mammographic findings. MG Screening Mammo w CAD Bilateral CC and MLO view(s) were taken. Prior study comparison: June 05, 2017, bilateral MG screening mammo w CAD. June 04, 2016, bilateral MG 3d screening mammo w/cad. There are scattered fibroglandular densities. Benign appearing bilateral calcifications. No significant changes when compared with prior studies. ASSESSMENT: Benign, BI-RAD 2 RECOMMENDATION: Routine screening mammogram of both breasts in 1 year.
== END | disposition home or self-care (01) ==
LOC: RADMAMWWP 06-06 06:53
PROVIDERS: ATTEND Family Medicine
DX: Z53.9 Procedure and treatment not carried out, unspecified reason (principal)
CPT/HCPCS: 77067

== ENCOUNTER → 2020-05-10 | Outpatient (CLI) | payer MEDICARE ==
--- NOTE | 2020-05-10 14:09 | XR ---
EXAMINATION TYPE: XR knee complete LT DATE OF EXAM: 05/10/2020 COMPARISON: None HISTORY: Knee pain TECHNIQUE: Three-view left knee FINDINGS: No acute fractures or dislocations are evident. The patella appears to be high riding. No j oint effusion is evident. No acute fractures or dislocations are evident. There is degenerative phipps e lateral compartment. IMPRESSION: 1. Consider patella karthikeyan. 2. No acute osseous abnormality. 3. Mild degenerative changes lateral compartment left knee joint space
== END | disposition home or self-care (01) ==
LOC: RADXRYALE 11:12
PROVIDERS: ATTEND Physician Assistant Medical
DX: M17.12 Unilateral primary osteoarthritis, left knee (principal)

== ENCOUNTER → 2020-05-17 | Outpatient (CLI) | payer MEDICARE | END | disposition home or self-care (01) | LOC: LABPAT 09:59 | PROVIDERS: ATTEND Orthopaedic Surgery | DX: Z22.322 Carrier or suspected carrier of Methicillin resistant Staphylococcus aureus (principal); M17.12 Unilateral primary osteoarthritis, left knee | CPT/HCPCS: 87070 ==

== ENCOUNTER 2020-07-11 09:44 | Day surgery (SDC) | payer MEDICARE ==
[2020-07-08 11:18] VITALS: BMI 29.0
--- NOTE | 2020-07-10 11:26 | HP ---
HISTORY AND PHYSICAL REASON FOR ADMISSION: Surgery is 07/11/2020 HISTORY OF PRESENT ILLNESS: Gabby Sanchez is a 65-year-old patient seen with symptomatic left knee osteoarthritis. We discussed options for treatment. She elected to proceed with left total knee arthroplasty. Consent regarding the procedure was obtained. Medical clearance was provided Dr. Sheldon. PAST MEDICAL HISTORY: Hypothyroidism, seizure disorder. PAST SURGICAL HISTORY: Cholecystectomy, left knee arthroscopy, right total knee arthroplasty, lumbar spine surgery. MEDICATIONS: Dilantin, ibuprofen, Tegretol. ALLERGIES: Are none known. SOCIAL HISTORY: She denies current tobacco use. PHYSICAL EXAMINATION: Evaluation of the left knee: Her range of motion is -2/3-130. Tenderness lateral joint line. Crepitus on lateral patellofemoral compartment with range of motion. Pain with patellofemoral compression. Ligaments stable. Hip rotation without pain. Distal neurovascular exam intact. RADIOGRAPHS: Radiographs of the left knee reveal severe osteoarthritic changes. IMPRESSION: 1. Left knee osteoarthritis. 2. Hypothyroidism. 3. Seizure disorder. PLAN: Left total knee arthroplasty. Surgery is 07/11/2020. MMODL / IJN: [id number] /
[~2020-07-11 09:44] MED LIST changes: +ACETAMINOPHEN TAB 500 MG TAB PO ONE; -DEXAMETHASONE SOD PHOSPHATE 10 MG/ML 1 ML VIAL IV ONE; +DEXAMETHASONE SOD PHOSPHATE 4 MG/ML 1 ML VIAL IV ONE; -LIDOCAINE 1% 20 ML VIAL (10MG/ML) FOR IV START INTRADERMA PRN; +MELOXICAM 7.5 MG TAB PO ONE; -MORPHINE SULFATE 4 MG/ML SYRINGE IV PRN; +ROPIVACAINE 246.25 MG, EPINEPHrine 0.5 MG, KETOROLAC 30 MG, cloNIDine HCL/PF 80 MCG, WA... MISCELLANE ONE; +TRANEXAMIC ACID 1,000 MG in SODIUM CHLORIDE 0.9% 100 ML IVPB ONE; -ceFAZolin IN SWFI 2 GM/20 ML SYRINGE IVP ONE; +fentaNYL (PF) 50 MCG/ML 2 ML AMP IV PRN
[2020-07-11] MEDS ORDERED: LIDOCAINE 1% (10MG/ML) FOR IV START INTRADERMA ONE (10:25)
[2020-07-11] MEDS ORDERED: fentaNYL (PF) 50 MCG/ML 2 ML AMP IVP ONE ×2 (10:46→11:00)
--- NOTE | 2020-07-11 11:20 | P.ANPRN ---
Procedure Note - Anesthesia - Nerve Block Performed Left Adductor Canal Infusion Time Out Performed: Yes (1046) Date of Procedure: 07/11/20 Procedure Start Time: 10:47 Procedure Stop Time: 10:53 Location of Patient: PreOp Indication: Acute Post-Operative Pain, Requested by Surgeon Specifically requested for management of pain by DrMarianne: Siddharth Barrera Sedation Type: Sedate with meaningful contact maintained Preparation: Sterile Prep Position: Supine Catheter Depth at Skin (cm): 7 Catheter: Indwelling Needle Types: Pajunk Needle Gauge: 21 Ultrasound used to visualize needle placement: Yes Ultrasound used to observe medication spread: Yes Injectate: 0.5% Ropivacaine (see comment for volume) Blood Aspirated: No Pain Paresthesia on Injection Noted: No Resistance on Injection: Normal Image Stored and Saved: Yes Events: Uneventful and Well Tolerated
[2020-07-11] MEDS ORDERED: TRANEXAMIC ACID 1,000 MG/10 ML VIAL ONE (12:38)
[2020-07-11] MEDS ORDERED: fentaNYL (PF) 50 MCG/ML 2 ML AMP ONE (12:38)
[2020-07-11] MEDS ORDERED: ePHEDrine SULFATE/0.9% NACL/PF 50 MG/5 ML SYRINGE IV ONE (12:38)
[2020-07-11] MEDS ORDERED: SODIUM CHLORIDE 0.9% 100 ML BAG ONE (12:38)
[2020-07-11] MEDS ORDERED: MIDAZOLAM 2 MG/2 ML VIAL ONE (12:38)
[2020-07-11] MEDS ORDERED: PROPOFOL 10 MG/ML 20 ML VIAL IV ONE (12:38)
[2020-07-11] MEDS ORDERED: LIDOCAINE 1% INJ 10MG/ML (20 ML MDV) ONE (12:38)
[2020-07-11] MEDS ORDERED: ceFAZolin 1,000 MG in SODIUM CHLORIDE 0.9% 1,000 ML IRRIGATION ONE (13:10)
[2020-07-11] MEDS ORDERED: LACTATED RINGERS 1,000 ML IV ONE (13:27)
[2020-07-11] MEDS ORDERED: HYDROmorphone 0.5 MG/0.5 ML SYRINGE IVP PRN ×2 (14:15)
[2020-07-11] MEDS ORDERED: ONDANSETRON 4 MG/2 ML VIAL IVP PRN (14:15)
[2020-07-11] MEDS ORDERED: HYDROcodone/APAP 5-325MG 1 EACH TAB PO PRN ×2 (14:15)
[2020-07-11] MEDS ORDERED: NALOXONE 0.4 MG/ML 1 ML VIAL IV PRN (14:15)
[2020-07-11] MEDS ORDERED: HYDROmorphone 1 MG/ML 1 ML SYRINGE IVP PRN (14:15)
--- NOTE | 2020-07-11 14:15 | P.OP ---
Date of Procedure: 07/11/20 Preoperative Diagnosis: Left knee osteoarthritis Postoperative Diagnosis: Left knee osteoarthritis Procedure(s) Performed: Left total knee arthroplasty Implants: 1. Depuy attune size 5 narrow left fixed bearing cemented femur 2. Depuy attune size 4 fixed bearing cemented tibial baseplate 3. Depuy attune size 5 fixed bearing cruciate retaining 5 mm polyethylene tibial insert 4. Depuy attune 35 mm all polyethylene cemented patella Anesthesia: regional (Adductor canal catheter), local, spinal Surgeon: Siddharth Barrera Materials Manager #1: Flavio Bailey Estimated Blood Loss (ml): 45 Pathology: other (Bone) Condition: stable Disposition: PACU Indications for Procedure: 65-year-old patient seen with symptomatic left knee osteoarthritis. After treatment options were discussed, she elected to proceed with total knee arth roplasty. Operative Findings: See description of procedure Description of Procedure: Patient was taken to the operative suite after having an adductor canal catheter placed by the department of anesthesia. Patient underwent a spinal anesthetic by the department of anesthesia. Patient was given preoperative IV intake antibiotics and TXA. A well-padded tourniquet was placed about the left lower extremity. The lower extremity was then prepped and draped in the normal sterile orthopedic fashion. The extremity was elevated, a tourniquet was i nsufflated to 300. A standard anterior incision was made sharply through skin. Dissection was taken down through the subcutaneous soft tissues down to the extensor mechanism. A medial arthrotomy was performed, patella was everted and knee was flexed. There was advanced osteoarthritis noted. I introduced my distal intramedullary femoral drill. I then introduced the distal femoral cutting jig. Anselmo VAUGHN secured the cutting jig with 2 pins. I held retractors in position while Anselmo VAUGHN performed the distal femoral resection through the guide area we now removed her distal femoral cutting guide. We now placed our 4-in-1 femoral cutting block and positioned and it was secured with 2 pins by Anselmo VAUGHN while I held the block in position. The distal femoral finishing was now completed. A proximal tibial cutting guide was positioned. I held the guide in the appropriate position with both hands well Anselmo VAUGHN inserted stabilizing pins into the guide. Proximal tibial cut was made. We now placed a trial femoral component into position, along with an appropriate size tibial tray and insert. We now took the knee through range of motion and had full extension good flexion and good overall soft tissue balance noted. The patella was everted and stabilized with 2 towel clips held by Anselmo VAUGHN while I performed a flush with patellar quad tendon utilizing a fresh sawblade. We templated the patella, appropriate drill holes were made. An appropriate trial patella was positioned, knee was taken through full range of motion with the patella tracking very nicely. The trial patella was removed. Drill holes were made through the femoral component. All trial components were removed after marking off the appropriate rotation of the tibia. Retractors wer e now positioned along the proximal tibia. An appropriate keel punch was made with the appropriate size tibial guide by myself on Anselmo VAUGHN assisted by holding retractors. At this point appropriate size implants were chosen and opened. The joint was irrigated copiously with pulse lavage mechanical irrigation. The posterior capsule was infiltrated with local analgesic. The wound was irrigated with pulse lavage mechanical irrigation. We mixed antibiotic methylmethacrylate. We placed the knee into flexion. We placed multiple retractors assisted by Anselmo VAUGHN to expose the proximal tibia. Once the methyl methacrylate was ready, the tibial component was cemented into place removing any excess methylmethacrylate form by both myself and Anselmo VAUGHN. The femoral component was cemented into place removing the removing any excess methylmethacrylate performed by both myself and Anselmo VAUGHN. We then inserted the appropriate size polyethylene tibial insert. We made sure that it was locked into position. We took the knee into full extension, and then back in a flexion making sure we had removed any excess methylmethacrylate. The patellar component was then cemented down and secured with clamp. Excess methylmethacrylate removed. We kept the knee in full extension, patellar clamp in position until methylmethacrylate had hardened. Once it had hardened the patellar clamp was removed. The knee was taken through full range of motion. The patella tracked nicely. There was good soft tissue balancing. The tourniquet was now released. Additional hemostasis was achieved via electrocautery. A second gram of TXA was given. The wound again was irrigated with pulse lavage mechanical irrigation. The superficial soft tissues were infiltrated local analgesic. The extensor mechanism was repaired with Vicryl. We checked the repair with range of motion and it was stable. The subcutaneous soft tissues were repaired with Vicryl in layers. The skin was approximated with pernio/Dermabond. Sterile dressings were applied followed by loose web roll and Conner bandage. The patient was transferred to a bed, and taken to recovery in stable and satisfactory condition. Anselmo VAUGHN assisted with this complex procedure.
[2020-07-11] MEDS ORDERED: ROPIVACAINE 0.2%-NS ON-Q PUMP 1,090 MG, EMPTY PAIN BALL 1 EACH MISCELLANE PRN (14:26)
--- NOTE | 2020-07-11 15:27 | XR ---
EXAMINATION TYPE: XR knee limited LT DATE OF EXAM: 07/11/2020 CLINICAL HISTORY: Left knee pain and arthritis status post total knee replacement. TECHNIQUE: Portable AP and crosstable lateral views of the left knee are obtained immediately postop eratively. COMPARISON: Left knee x-ray May 10, 2020 FINDINGS: Metallic hardware from total left knee arthroplasty is seen and appears satisfactory in al ignment and position. There is evidence of recent surgery with diffuse subcutaneous gas and soft tis zbigniew swelling and overlying vertical skin joanna. [place] osseous structures are demineralized. IMPRESSION: METALLIC HARDWARE FROM TOTAL LEFT KNEE ARTHROPLASTY IS SATISFACTORY IN ALIGNMENT.
[2020-07-11] MEDS ORDERED: PHENYTOIN SODIUM EXTENDED 100 MG CAP PO SCH ×3 (17:45→21:00)
[2020-07-11] MEDS: LACTATED RINGERS 1,000 ML IV SCH (18:11)
[2020-07-11] MEDS: LEVOTHYROXINE 75 MCG TAB PO SCH (18:23)
[2020-07-11] MEDS: carBAMazepine 200 MG TAB PO SCH (20:10)
[2020-07-11] MEDS: ENOXAPARIN 30 MG/0.3 ML SYRINGE SQ SCH (20:10)
[2020-07-11] MEDS ORDERED: SENNOSIDES-DOCUSATE SODIUM 1 EACH TAB PO SCH (21:00)
[2020-07-12] MEDS: LACTATED RINGERS 1,000 ML IV SCH ×2 (00:20→08:48)
[2020-07-12 01:34] VITALS: TEMP 97.9
[2020-07-12] MEDS: LEVOTHYROXINE 75 MCG TAB PO SCH (05:26)
--- NOTE | 2020-07-12 07:01 | CONS ---
CONSULTATION DATE OF SERVICE: 07/11/2020 REASON FOR CONSULTATION: Advice regarding seizure disorder and other multiple medical issues requested by Dr. Barrera. 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 Gage Sheldon in the outpatient setting had a seizure about 1 month ago. Apparently, she is very sensitive to food additives and one of the friends baked a cake with unknown food additive and the patient developed a seizure. The patient is very careful about taking additional food substances also. The patient has also allergy to multiple generic medications, but the patient is able to take her own medications without any severe allergic reaction at this time. There is no history of fever, rigors. No history of headache, loss of consciousness, seizures at this time. PAST MEDICAL HISTORY: History of DJD, seizure disorder, hypothyroidism, history of brain surgery. MEDICATIONS: Medications prior to admission include: Tegretol 400 mg b.i.d., Dilantin 300 mg at bedtime, Synthroid 75 mcg p.o. daily, Tylenol p.r.n., Dilantin 100 mg daily and ibuprofen 800 mg q.8 p.r.n. ALLERGIES: CARBAMAZEPINE, PHENOBARBITAL, PHENYTOIN, DEPAKENE, DILAUDID, ARTIFICIAL FLAVORING, ASPIRIN, MSG, CAFFEINE, SODIUM NITRATE, NARCOTICS. FAMILY HISTORY: History of cancer in the family. SOCIAL HISTORY: No history of smoking. No history of alcohol intake. REVIEW OF SYSTEMS: ENT: No diminished hearing or diminished vision. CARDIOVASCULAR SYSTEM: No angina. RESPIRATORY SYSTEM: As mentioned earlier. GI: As mentioned earlier. : No dysuria. NERVOUS SYSTEM: No numbness or weakness, otherwise, mentioned earlier. ALLERGY/IMMUNOLOGY: No asthma or hayfever. MUSCULOSKELETAL: As mentioned earlier. HEMATOLOGY: No history of anemia. ENDOCRINE: Hypothyroidism. CONSTITUTIONAL: As mentioned earlier. DERMATOLOGY: Negative. RHEUMATOLOGY: Negative. PSYCHIATRY: As mentioned earlier. PHYSICAL EXAMINATION: The patient is alert and oriented x3. Pulse 103, blood pressure 130/78, respiration 18, temperature 98 degrees, pulse ox 97% on room air. HEENT: Conjunctivae normal. NECK: No jugular venous distention. CARDIOVASCULAR: S1, S2 muffled. RESPIRATORY: Breath sounds diminished at the bases. No rhonchi, no crackles. ABDOMEN: Soft. Nontender. No mass palpable. LEGS: No edema. No swelling. NERVOUS SYSTEM: No focal deficits. EXAMINATION OF THE LEFT KNEE: Status post knee joint arthroplasty. LABS: CBC within normal limits. Chemistry noted. Cholesterol is 267, LDL 189. ASSESSMENT: 1. Status post left total knee arthroplasty. 2. History of seizures. 3. Hyperlipidemia. 4. Hypothyroidism. 5. History of cholecystectomy. 6. 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 7. FULL CODE. RECOMMENDATIONS AND DISCUSSION: This 65-year-old woman who presented with multiple medical issues, at this time I recommend to continue the current medications, continue symptomatic treatment. Home medication may be continued and cautious diet because of the patient's food allergies. Otherwise, DVT prophylaxis, incentive spirometry. I would also recommend follow up with primary physician regarding the hyperlipidemia, also the cholesterol was found to be 267 and LDL is 189 in October of this year, might need repeat checkup. Further recommendations to follow. Please send a copy of dictation to Dr. Sheldon's office. Thank you Dr. Barrera for letting us participate in the care of this patient. MMODL / IJN: [id number] /
--- NOTE | 2020-07-12 08:02 | P.PN ---
Progress Note - Text The patient is status post left adductor canal catheter placement. The catheter was placed for postoperative pain control, status post total left arthroplasty. Ropivacaine 0.2% is infusing at 8 mLs per hour. The patient has no complaints of left lower extremity numbness or weakness. Patient's VAS score is 1-2-10. Assessment: Patient's adductor canal catheter is in place and working appropriately. Plan: continue infusion and adjust it as needed.
[2020-07-12] MEDS: carBAMazepine 200 MG TAB PO SCH (08:46)
[2020-07-12] MEDS: ENOXAPARIN 30 MG/0.3 ML SYRINGE SQ SCH (08:48)
[2020-07-12 08:50] VITALS: BP 115/71; PULSE 83; RESP 18
[2020-07-12] MEDS ORDERED: MELOXICAM 7.5 MG TAB PO SCH (09:00)
--- NOTE | 2020-07-12 09:33 | P.PN ---
Subjective Progress Note Date: 07/12/20 Principal diagnosis: status post left total knee arthroplasty Patient evaluated at bedside, she is resting comfortably. She's very well physical therapy. Her pain is well-controlled. She denies any headaches, lightheadedness, chest pain, shortness of breath, nausea or vomiting, fever or chills. Objective - Vital Signs Vital signs: Vital Signs Temp 97.9 F 07/12/20 07:30 Pulse 83 07/12/20 07:30 Resp 18 07/12/20 07:30 BP 115/71 07/12/20 07:30 Pulse Ox 96 07/12/20 07:30 Intake & Output 07/11/20 07/12/20 07/12/20 18:59 06:59 18:59 Intake Total 1451 150 Output Total 45 Balance 1406 150 Weight 75 kg Intake: IV 1451 Intake, IV Titration 150 Amount Lactated Ringers 1,000 ml 150 @ 100 mls/hr IV .Q10H FATUMA Rx#:[id number] Output: Estimated Blood Loss 45 Other: Voiding Method Bedside Commode # Voids 1 - Exam Left lower extremity: Incision is clean, dry, and intact. The foam dressing is in good condition. There is minimal soft tissue swelling and ecchymosis surrounding the medial and lateral aspects of the incision. Calf is soft, no tenderness with palpation. Plantar flexion, dorsiflexion, EHL, FHL are intact. Sensory exam to light touch throughout the extremity is intact, dorsal pedis pulses 2+. Assessment and Plan Assessment: Status post left total knee arthroplasty Plan: Pain control, plan for discharge home on [place] 7.5/325 mg. Discussed use of [id number] Tylenol DVT prophylaxis, Xarelto 10 mg for 12 days Wound care was discussed Icing and elevating techniques discussed Home health care after discharge Medical recommendations Plan for discharge home today Time with Patient: Less than 30
--- NOTE | 2020-07-12 09:37 | P.DS ---
Providers Date of admission: 07/11/2020 Expected date of discharge: 07/12/20 Attending physician: Siddharth Barrera Consults: 07/11/20 14:15 Consult Physician Routine Consulting Provider: Gage Sheldon Consult Reason/Comments: Medical management Do you want consulting provider notified?: Yes Primary care physician: Gage Sheldon [facility] Course: Date of admission: 07/11/2020 Date of discharge: 07/12/2020 Admission diagnosis: Status post left total knee arthroplasty Discharge diagnosis: Same Attending physician: Dr. Barrera Surgical procedures: Left total knee arthroplasty Brief history: Patient is a a 65-year-old female with a history of progressive primary left knee osteoarthritis. At this point patient has failed conservative treatment measures and has opted to proceed with a elective left total knee arthroplasty. Hospital course: Details of patient's surgery can be found in operative report. Patient tolerated the procedure well and was subsequently transported to orthopedic floor. Patient's orthopeidc and medical care was provided daily. Patient had daily laboratory tests performed for evaluation of overall blood counts. Patient had daily physical therapy to include strengthening range of motion as well as education with walker ambulation. Patient was treated with Lulu for their postoperative DVT prophylaxis during their inpatient stay. Patient was noted to have a relatively uneventful postoperative course. Patient reported satisfactory pain control with oral pain medications by postoperative day 0. Patient showed satisfactory progress with physical therapy. Patient moved steadily through the program and had no difficulty meeting the goals by postoperative day 1. Given patient's otherwise satisfactory course and having met physical therapy goals, plan is to discharge patient home on postoperative day 1. Discharge condition/disposition: Patient will be discharged home in stable condition. Discharge medications: Instructions are given on resumption of patient's normal daily medications per primary care recommendation, in addition patient will be prescribed [place] 7.5 mg/325 mg, Xarelto 10 mg, Colace 100mg. Discharge instructions: 1. Wound care and infection precautions, keep incision dry and covered while showering, no lotions, creams, moisturizers. No soaking, tubs, pools, hottubs. Do not scrub over the incision. 2. Weight-bear as tolerated with walker / cane until follow-up. 3. Ice and elevate when necessary. Do not exceed 20 minutes per hour with ice pack. 4. Utilize compression sleeve until seen at first follow up appointment. 5. Visiting nursing care. 6. Home physical therapy. 7. Pain meds and anticoagulants per prescription. 8. Pain medication has potential to cause constipation. Increase oral fluid and fiber intake. Contact primary care provider if you have not had a bowel movement within 48 hours after discharge 9. No anti-inflammatory medication until discussed at first post operative visit, this including Motrin, Aleve, Mobic, Diclofenac. 10. Follow up in office at 2 weeks postop with Anselmo Bailey PA-C 11. Follow up with your primary care doctor 7-10 days after discharge. 12. Contact [facility] with any questions, . Procedures: Left total knee arthroplasty Patient Condition at Discharge: Good Plan - Discharge Summary Discharge Rx Participant: Yes New Discharge Prescriptions: New Docusate [Colace] 100 mg PO DAILY #30 capsule HYDROcodone/APAP 7.5-325MG [[place] 7.5] 1 - 2 each PO Q6HR PRN #42 tab PRN Reason: Pain Rivaroxaban [Xarelto] 10 mg PO DAILY #12 tab No Action carBAMazepine [TEGretol] 400 mg PO BID Phenytoin Sodium Extended [Dilantin] 300 mg PO HS Phenytoin Sodium Extended [Dilantin] 100 mg PO DAILY Levothyroxine Sodium [Synthroid] 75 mcg PO DAILY Acetaminophen [Tylenol] 500 mg PO Q6H PRN PRN Reason: Pain Ibuprofen 800 mg PO Q8H PRN PRN Reason: Pain Discharge Medication List Phenytoin Sodium Extended [Dilantin] 300 mg PO HS 07/27/14 [History] carBAMazepine [TEGretol] 400 mg PO BID 07/27/14 [History] Levothyroxine Sodium [Synthroid] 75 mcg PO DAILY 01/02/16 [History] Phenytoin Sodium Extended [Dilantin] 100 mg PO DAILY 01/02/16 [History] Acetaminophen [Tylenol] 500 mg PO Q6H PRN 10/15/16 [History] Ibuprofen 800 mg PO Q8H PRN 07/08/20 [History] Docusate [Colace] 100 mg PO DAILY #30 capsule 07/12/20 [Rx] HYDROcodone/APAP 7.5-325MG [[place] 7.5] 1 - 2 each PO Q6HR PRN #42 tab 07/12/20 [Rx] Rivaroxaban [Xarelto] 10 mg PO DAILY #12 tab 07/12/20 [Rx] Follow up Appointment(s)/Referral(s): [facility],Equipment [NON-STAFF] - As Needed (Supplier of CPM and 4 wheeled rolling walker. ) Flavio Bailey, JESUS [PHYSICIAN SONG AND DANCE PERFORMER] - 07/27/20 1:50 pm [facility],Nurse [NON-STAFF] - 07/13/20 Gage Sheldon DO [Primary Care Provider] - 1 Week Activity/Diet/Wound Care/Special Instructions: Orthopedic Discharge Instructions: 1. Wound care and infection precautions, keep incision dry and covered while showering, no lotions, creams, moisturizers. No soaking, pools, hot tubs. Do not scrub over incision. 2. Weight-bear as tolerated with walker / cane until follow-up. 3. Ice and elevate when necessary. Do not exceed 20 minutes per hour with ice pack. 4. Utilize compression sleeve until seen at first follow up appointment. 5. Pain meds and anticoagulants per prescription. 6. Pain medication has potential to cause constipation. Increase oral fluid and fiber intake. Contact primary care provider if you have not had a bowel movement within 48 hours after discharge. 7. No anti-inflammatory medication until discussed at first post operative visit, this including Motrin, Aleve, Mobic, Diclofenac. 8. Follow up in office at 2 weeks postop with Anselmo Bailey PA-C 9. Follow up with your primary care doctor 7-10 days after discharge. 10. Contact [facility] with any questions, . Discharge Disposition: HOME WITH HOME HEALTH SERVICES
[2020-07-12 09:42] LABS: Basophils % (A) 1 %; Eosinophils # (A) 0.1 k/uL (0-0.7); Eosinophils % (A) 1 %; HCT 37.2 % (34.0-46.0); HGB 12.1 gm/dL (11.4-16.0); Lymphocytes # (A) 0.4 k/uL (1.0-4.8); Lymphocytes % (A) 6 %; MCH 31.2 pg (25.0-35.0); MCHC 32.6 g/dL (31.0-37.0); Mean Platelet Volume 7.3; Monocytes # (A) 0.4 k/uL (0-1.0); Monocytes % (A) 5 %; Neutrophils # (A) 6.4 k/uL (1.3-7.7); Neutrophils % (A) 87 %; Platelet Count 184 k/uL (150-450); RBC 3.87 m/uL (3.80-5.40); RDW 12.8 % (11.5-15.5); WBC 7.4 k/uL (3.8-10.6)
--- NOTE | 2020-07-12 23:27 | PN ---
PROGRESS NOTE DATE OF SERVICE: 07/12/2020 This 65-year-old woman who was admitted with left total knee arthroplasty improving significantly. No chest pain. No palpitations. No fever. PHYSICAL EXAMINATION: The patient is alert and oriented x3. Pulse is 83, blood pressure 115/71, respiration 18, temperature 97.9, pulse ox 96% on room air. HEENT: Conjunctivae normal. NECK: No jugular venous distention. CARDIOVASCULAR: S1, S2 muffled. RESPIRATORY: Breath sounds diminished at the bases. No rhonchi, no crackles. ABDOMEN: Soft, nontender. No mass palpable. LEGS: Status post surgery. NERVOUS SYSTEM: No focal deficits. LABS: CBC within normal limits. ASSESSMENT: 1. Status post left total knee arthroplasty. 2. History of seizures. 3. Hyperlipidemia. 4. Hypothyroidism. 5. History of cholecystectomy. 6. 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 7. FULL CODE. RECOMMENDATIONS AND DISCUSSION: Recommend to continue current medications, continue symptomatic treatment. Otherwise recommend close followup with primary physician. DVT prophylaxis. Incentive spirometry. The rest of the recommendations per Orthopedic Surgery. Further recommendations to follow. MMODL / IJN: [id number] /
== END 2020-07-12 12:27 | disposition home health service (06) ==
LOC: OR 09:44 → 5NMEDONC 16:51 → OR 07-12 12:27
PROVIDERS: ATTEND Orthopaedic Surgery
DX: M17.12 Unilateral primary osteoarthritis, left knee (principal); E03.9 Hypothyroidism, unspecified; E78.5 Hyperlipidemia, unspecified; G40.909 Epilepsy, unspecified, not intractable, without status epilepticus; Z90.49 Acquired absence of other specified parts of digestive tract; Z98.890 Other specified postprocedural states; Z86.011 Personal history of benign neoplasm of the brain; Z88.5 Allergy status to narcotic agent; Z88.6 Allergy status to analgesic agent; Z88.8 Allergy status to other drugs, medicaments and biological substances; Z79.01 Long term (current) use of anticoagulants; Z79.890 Hormone replacement therapy; Z79.1 Long term (current) use of non-steroidal anti-inflammatories (NSAID); Z79.899 Other long term (current) drug therapy; Z96.651 Presence of right artificial knee joint; Z80.9 Family history of malignant neoplasm, unspecified
CPT/HCPCS: 97161; 64448; 76942; 85025; 88300; 73560; 27447; C1776; C1713; J2250; J0171; J1100; J0690 ×3; J2405; J2001; J3010; J1885; J1650; J2795 ×2; J2704; J0735

== ENCOUNTER → 2021-07-06 | Outpatient (CLI) | payer MEDICARE ==
--- NOTE | 2021-07-07 15:02 | MM ---
Reason for exam: screening (asymptomatic). Last mammogram was performed 2 years and 7 months ago. History: Patient is postmenopausal and is nulliparous. Family history of breast cancer in sister at age 30, breast cancer in paternal cousin, and breast cancer in mother at age 64. Physical Findings: A clinical breast exam by your physician is recommended on an annual basis and results should be correlated with mammographic findings. MG Screening Mammo w CAD Bilateral CC and MLO view(s) were taken. Prior study comparison: December 02, 2018, bilateral MG screening mammo w CAD. June 05, 2017, bilateral MG screening mammo w CAD. The breast tissue is heterogeneously dense. This may lower the sensitivity of mammography. Benign appearing bilateral calcifications. No significant changes when compared with prior studies. ASSESSMENT: Benign, BI-RAD 2 RECOMMENDATION: Routine screening mammogram of both breasts in 1 year.
== END | disposition home or self-care (01) ==
LOC: RADMAMWWP 07:05
PROVIDERS: ATTEND Family Medicine
DX: Z12.31 Encounter for screening mammogram for malignant neoplasm of breast (principal); Z78.0 Asymptomatic menopausal state; Z80.3 Family history of malignant neoplasm of breast
CPT/HCPCS: 77067

== ENCOUNTER → 2022-04-06 | Outpatient (CLI) | payer MEDICARE ==
--- NOTE | 2022-04-06 23:19 | XR ---
EXAMINATION TYPE: XR knee complete LT DATE OF EXAM: 04/06/2022 4:36 PM INDICATION: Patient age:Female; 67 years old; Reason for study: [id number] LT OA,LT KNEE PAIN,FALL; YCH. COMPARISON: None. TECHNIQUE: The Left knee(s) was examined in 3 projections. Frontal, lateral and oblique. FINDINGS: Total left knee arthroplasty changes. Hardware appears intact continued appropriate alignme nt. No evidence of loosening or periprosthetic fracture. No evidence of any acute osseous pathology. A fabella is present. No joint effusion. IMPRESSION: 1. No evidence of fracture. 2. Total left knee arthroplasty changes with hardware intact and in appropriate position.
== END | disposition home or self-care (01) ==
LOC: RADXRYALE 16:20
PROVIDERS: ATTEND Physician Assistant Medical
DX: M17.12 Unilateral primary osteoarthritis, left knee (principal); Z96.652 Presence of left artificial knee joint

== ENCOUNTER 2022-04-13 10:58 | Observation (INO) | payer MEDICARE ==
[2022-04-13] MEDS ORDERED: SODIUM CHLORIDE 0.9% 500 ML 500 ML IV STA (11:16)
[2022-04-13 11:41] LABS: Basophils % (A) 1 %; Eosinophils # (A) 0.1 k/uL (0-0.7); Eosinophils % (A) 2 %; HCT 40.6 % (34.0-46.0); HGB 13.3 gm/dL (11.4-16.0); Lymphocytes # (A) 0.9 k/uL (1.0-4.8); Lymphocytes % (A) 19 %; MCH 31.5 pg (25.0-35.0); MCHC 32.9 g/dL (31.0-37.0); MCV 95.6 fL (80.0-100.0); Mean Platelet Volume 7.4; Monocytes # (A) 0.3 k/uL (0-1.0); Monocytes % (A) 7 %; Neutrophils # (A) 3.3 k/uL (1.3-7.7); Neutrophils % (A) 70 %; Platelet Count 252 k/uL (150-450); RBC 4.24 m/uL (3.80-5.40); RDW 12.3 % (11.5-15.5); WBC 4.7 k/uL (3.8-10.6)
--- NOTE | 2022-04-13 11:44 | ED ---
General Adult HPI - General Chief complaint: Recheck/Abnormal Lab/Rx Stated complaint: blood pressure issue, double vision Time Seen by Provider: 04/13/22 11:00 Source: patient, RN notes reviewed, old records reviewed Mode of arrival: ambulatory Limitations: no limitations - History of Present Illness Initial comments: This is a 67-year-old female presents emergency Department complaining that for a month she's had intermittent double vision such that she tries to get up and walk she starts to fall to the left. 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 Patient states today she went to see the primary medical care doctor and they sent her into the emergency department to be evaluated. Patient complains of a slight headache over the left eye with the double vision is back and worse today and making her walk to the left or fall to the left. Patient denies any recent fever chills or cough. Patient states that she has a history of seizures and is on Dilantin and Tegretol and she had brain surgery years ago to help alleviate some of the seizures. Patient denies any chest pain difficult breathing shortness breath per patient denies any abdominal pain patient denies nausea vomiting diarrhea. Patient denies any other symptoms at this time - Related Data Home Medications Medication Instructions Recorded Confirmed Phenytoin Sodium Extended 300 mg PO HS 07/27/14 04/13/22 [Dilantin] carBAMazepine [TEGretol] 400 mg PO BID 07/27/14 04/13/22 Levothyroxine Sodium [Synthroid] 75 mcg PO DAILY 01/02/16 04/13/22 Phenytoin Sodium Extended 100 mg PO DAILY 01/02/16 04/13/22 [Dilantin] Acetaminophen Tab [Tylenol] 325 mg PO Q4H PRN 04/13/22 04/13/22 Allergies Allergy/AdvReac Type Severity Reaction Status Date / Time carbamazepine Allergy seizure Verified 04/13/22 12:05 phenobarbital Allergy blurred Verified 04/13/22 12:05 vision phenytoin Allergy seizure Verified 04/13/22 12:05 primidone [From Mysoline] Allergy seizures, Verified 04/13/22 12:05 blurred vision valproate sodium Allergy seizures Verified 04/13/22 12:05 [From Depakene] valproic acid [From Depakene] Allergy seizures Verified 04/13/22 12:05 hydromorphone HCl AdvReac jittery Verified 04/13/22 12:05 [From Dilaudid] artificial flavoring Allergy seizure Uncoded 04/13/22 11:04 aspirin Allergy seizures Uncoded 04/13/22 11:04 MSG,caffiene,sodium nitrates Allergy seizures Uncoded 04/13/22 11:04 narcotics AdvReac jittery Uncoded 04/13/22 11:04 Review of Systems ROS Statement: Those systems with pertinent positive or pertinent negative responses have been documented in the HPI. ROS Other: All systems not noted in ROS Statement are negative. Past Medical History Past Medical History: Seizure Disorder, Thyroid Disorder Additional Past Medical History / Comment(s): EPILEPSY last seizure ONE MONTH AGO History of Any Multi-Drug Resistant Organisms: None Reported Past Surgical History: Cholecystectomy, Orthopedic Surgery Additional Past Surgical History / Comment(s): BRAIN SURGERY, Past Anesthesia/Blood Transfusion Reactions: No Reported Reaction Past Psychological History: No Psychological Hx Reported Smoking Status: Never smoker Past Alcohol Use History: None Reported Past Drug Use History: None Reported - Past Family History Sister(s) Family Medical History: Cancer General Exam - General Exam Comments Initial Comments: GENERAL: Patient is well-developed and well-nourished. Patient is nontoxic and well- hydrated and is in mild distress. ENT: Neck is soft and supple. No significant lymphadenopathy is noted. Oropharynx is clear. Moist mucous membranes. Neck has full range of motion without elici ting any pain. EYES: The sclera were anicteric and conjunctiva were pink and moist. Extraocular m ovements were intact and pupils were equal round and reactive to light. Eyelids were unremarkable. PULMONARY: Unlabored respirations. Good breath sounds bilaterally. No audible rales rhonchi or wheezing was noted. CARDIOVASCULAR: There is a regular rate and rhythm without any murmurs gallops or rubs. ABDOMEN: Soft and nontender with normal bowel sounds. No palpable organomegaly was noted. There is no palpable pulsatile mass. SKIN: Skin is clear with no lesions or rashes and otherwise unremarkable. NEUROLOGIC: Patient is alert and oriented x3. Cranial nerves II through XII are grossly intact. Motor and sensory are also intact. Normal speech, volume and content. Symmetrical smile. Finger to nose testing is normal bilaterally MUSCULOSKELETAL: Normal extremities with adequate strength and full range of motion. LYMPHATICS: No significant lymphadenopathy is noted PSYCHIATRIC: Normal psychiatric evaluation. Limitations: no limitations Course Vital Signs 04/13/22 04/13/22 11:02 13:55 Temperature 98 F Pulse Rate 70 56 L Respiratory 20 18 Rate Blood Pressure 102/63 109/63 O2 Sat by Pulse 99 98 Oximetry Medical Decision Making - Medical Decision Making EKG shows sinus rhythm at 64 bpm TN interval 290 QRS is 105 Q-T intervals 42 QTC is 411. Patient's EKG shows no ST segment elevation or depression. CT of the brain shows no acute abnormality. CTA shows no acute abnormality. Patient's Dilantin level was elevated and the toxic range. I spoke with Dr. Ulloa and he agreed to admit the patient admitted the patient wrote admitting orders - Lab Data Result diagrams: 04/13/22 11:22 04/13/22 11:22 Lab Results 04/13/22 04/13/22 04/13/22 Range/Units 11:22 11:22 11:22 WBC 4.7 (3.8-10.6) k/uL RBC 4.24 (3.80-5.40) m/uL Hgb 13.3 (11.4-16.0) gm/dL Hct 40.6 (34.0-46.0) % MCV 95.6 (80.0-100.0) fL MCH 31.5 (25.0-35.0) pg MCHC 32.9 (31.0-37.0) g/dL RDW 12.3 (11.5-15.5) % Plt Count 252 (150-450) k/uL MPV 7.4 Neutrophils % 70 % Lymphocytes % 19 % Monocytes % 7 % Eosinophils % 2 % Basophils % 1 % Neutrophils # 3.3 (1.3-7.7) k/uL Lymphocytes # 0.9 L (1.0-4.8) k/uL Monocytes # 0.3 (0-1.0) k/uL Eosinophils # 0.1 (0-0.7) k/uL Basophils # 0.0 (0-0.2) k/uL PT 10.5 (9.0-12.0) sec INR 1.0 (<1.2) APTT 22.0 (22.0-30.0) sec Sodium 141 (137-145) mmol/L Potassium 4.4 (3.5-5.1) mmol/L Chloride 106 (98-107) mmol/L Carbon Dioxide 26 (22-30) mmol/L Anion Gap 9 mmol/L BUN 20 H (7-17) mg/dL Creatinine 0.76 (0.52-1.04) mg/dL Est GFR (CKD-EPI)AfAm >90 (>60 ml/min/1.73 sqM) Est GFR (CKD-EPI)NonAf 83 (>60 ml/min/1.73 sqM) Glucose 93 (74-99) mg/dL Calcium 9.3 (8.4-10.2) mg/dL Total Bilirubin 0.2 (0.2-1.3) mg/dL AST 23 (14-36) U/L ALT 16 (4-34) U/L Alkaline Phosphatase 175 H (38-126) U/L Troponin I (0.000-0.034) ng/mL Total Protein 7.1 (6.3-8.2) g/dL Albumin 4.0 (3.5-5.0) g/dL Phenytoin 24.4 ug/mL Carbamazepine 6.3 ug/mL 04/13/22 Range/Units 11:22 WBC (3.8-10.6) k/uL RBC (3.80-5.40) m/uL Hgb (11.4-16.0) gm/dL Hct (34.0-46.0) % MCV (80.0-100.0) fL MCH (25.0-35.0) pg MCHC (31.0-37.0) g/dL RDW (11.5-15.5) % Plt Count (150-450) k/uL MPV Neutrophils % % Lymphocytes % % Monocytes % % Eosinophils % % Basophils % % Neutrophils # (1.3-7.7) k/uL Lymphocytes # (1.0-4.8) k/uL Monocytes # (0-1.0) k/uL Eosinophils # (0-0.7) k/uL Basophils # (0-0.2) k/uL PT (9.0-12.0) sec INR (<1.2) APTT (22.0-30.0) sec Sodium (137-145) mmol/L Potassium (3.5-5.1) mmol/L Chloride (98-107) mmol/L Carbon Dioxide (22-30) mmol/L Anion Gap mmol/L BUN (7-17) mg/dL Creatinine (0.52-1.04) mg/dL Est GFR (CKD-EPI)AfAm (>60 ml/min/1.73 sqM) Est GFR (CKD-EPI)NonAf (>60 ml/min/1.73 sqM) Glucose (74-99) mg/dL Calcium (8.4-10.2) mg/dL Total Bilirubin (0.2-1.3) mg/dL AST (14-36) U/L ALT (4-34) U/L Alkaline Phosphatase (38-126) U/L Troponin I <0.012 (0.000-0.034) ng/mL Total Protein (6.3-8.2) g/dL Albumin (3.5-5.0) g/dL Phenytoin ug/mL Carbamazepine ug/mL Disposition Clinical Impression: Dilantin toxicity, Ataxia, Double vision Disposition: ADMITTED IP TO THIS HOSP Referrals: Gage Sheldon DO [Primary Care Provider] - 1-2 days Time of Disposition: 14:36
[2022-04-13 11:51] LABS: Prothrombin Time 10.5 sec (9.0-12.0)
[2022-04-13 11:56] LABS: ALT 16 U/L (4-34); AST 23 U/L (14-36); African American GFR (CKD) >90 (>60 ml/min/1.73 sqM); Alkaline Phosphatase 175 U/L (38-126); Anion Gap 9 mmol/L; Blood Urea Nitrogen 20 mg/dL (7-17); Calcium 9.3 mg/dL (8.4-10.2); Carbamazepine (Tegretol) 6.3 ug/mL; Carbon Dioxide 26 mmol/L (22-30); Chloride 106 mmol/L (98-107); Glucose 93 mg/dL (74-99); Non-African American GFR(CKD) 83 (>60 ml/min/1.73 sqM); Phenytoin (Dilantin) 24.4 ug/mL; Potassium 4.4 mmol/L (3.5-5.1); Sodium 141 mmol/L (137-145); Total Bilirubin 0.2 mg/dL (0.2-1.3); Total Protein 7.1 g/dL (6.3-8.2)
--- NOTE | 2022-04-13 12:29 | XR ---
EXAMINATION TYPE: XR chest 2V DATE OF EXAM: 04/13/2022 COMPARISON: 01/02/2016 INDICATION: Altered mental status TECHNIQUE: Frontal and lateral views of the chest are obtained. FINDINGS: The heart size is normal. The pulmonary vasculature is normal. The lungs are clear. IMPRESSION: 1. No acute pulmonary process.
--- NOTE | 2022-04-13 12:50 | CT ---
EXAMINATION TYPE: CT brain wo con DATE OF EXAM: 04/13/2022 COMPARISON: 07/27/2014 INDICATION: double vision, elevated blood pressure DLP: 1131.6 mGycm, Automated exposure control for dose reduction was used. CONTRAST: None CT of the brain is performed utilizing 3 mm thick sections through the posterior fossa and 3 mm thick sections through the remaining calvarium. Study is performed within 24 hours of arrival to the hosp ital. No abnormal hyperdensity is present to suggest an acute intracranial hemorrhage. No mass lesion is evident. No acute infarcts are evident. Minimal periventricular white matter hypodensity may be present, more likely related to microvascular ischemic change. Old encephalomalacia of the right temporal lobe is p resent. Temporal craniotomy is evident. Frontal parietal craniotomy on the right is present. Ventricles and sulci are appropriate for the patient age. Paranasal sinuses and mastoid air cells within the [id number] are clear. IMPRESSIONS: 1. Postsurgical changes. There appears to be encephalomalacia of the right temporal lobe, stable fr om 2013. 2. Some minimal hypodensity in the periventricular regions may be chronic microvascular ischemic estrella ge. This is an interval change. Follow-up MRI can be performed as clinically indicated.
--- NOTE | 2022-04-13 14:16 | CT ---
EXAMINATION TYPE: CT angio head neck DATE OF EXAM: 04/13/2022 HISTORY: Double vision and elevated BP COMPARISON: None CT DLP: 399.8 mGycm. Automated Exposure Control for Dose Reduction was Utilized. TECHNIQUE: CTA scan of the neck is performed with IV Contrast, patient injected with 65 ML mL of Iso pati 370, axial images are obtained, coronal and sagittal reformatted images are reviewed. Three-D rec onstructed images are created on an independent workstation and reviewed. Source images are reviewed . FINDINGS: Carotid/Vascular Structures: There is a three-vessel arch. Carotid bifurcations appear normal without significant flow-limiting stenosis. Vertebral arteries are codominant. Internal carotid arteries are patent to the skull base. Cervical of [place]: Vertebral basilar system appears normal. Posterior cerebral vasculature is unrema rkable. Internal carotid arteries bifurcate normally into A1 and M1 segments. A2 segments are normal. The anterior communicating artery is patent. Left Posterior communicating artery is absent. Right po sterior communicating artery is patent. No abrupt cut off vessels identified. Posterior cerebral vasc ulature appears normal. Occipital regions appear normal. IMPRESSION: 1. No flow-limiting stenosis bilateral carotid bifurcations. 2. Normal n[place] of [place] NASCET criteria was used in interpretation of this exam?
[2022-04-13] MEDS ORDERED: SODIUM CHLORIDE 0.9% 1,000 ML IV ONE (14:41)
[2022-04-13] MEDS ORDERED: NALOXONE 0.4 MG/ML 1 ML VIAL IV PRN (17:14)
--- NOTE | 2022-04-13 17:36 | P.HPIM ---
History of Present Illness H&P Date: 04/13/22 Patient is a 67-year-old female with PMH of epilepsy and hypothyroidism presents the ED for constellation of symptoms. Patient reports blurry and double vision that has been ongoing for the past 4 weeks. She also reports gait instability with weakness over left > right side. She reports a fall 3 weeks ago that led to a radial and ulnar fracture of her right arm which was casted by Dr. Barrera. She denies any loss of consciousness or head trauma. She denies any confusion or slurred speech. She denies any headache, lower extremity edema, nausea or vomiting, fever or chills, cough, chest pain, shortness of breath, palpitations, changes in urination or bowel habits. Today, she went to go see her PCP, who urged her to come to the ED. In the ED, her vital signs were stable. CBC was unremarkable. Coagulation panel negative. CMP showed BUN of 20 and alkaline phosphatase 175. Troponin less than 0.012. Phenytoin level was 24.2. Carbamazepine level 6.3. Chest x ray was negative. CT brain showed post surgical changes, hypodensity in the periventricular regions that is interval change. Patient is admitted for double vision and gait instability with Neurology on consult. Review of systems is performed and is negative except for above. General: [non toxic], [no distress], [appears at stated age] Derm: [warm], [dry] Head: [atraumatic], [normocephalic], [symmetric] Eyes: [EOMI], [no lid lag], [anicteric sclera] Mouth: [no lip lesion], [mucus membranes moist] Cardiovascular: [S1S2 reg], [no murmur], [positive DT pulse bilateral] Lungs: [CTA bilateral], [no rhonchi, no rales] , [no accessory muscle use] Abdominal: [soft], [ nontender to palpation], [no guarding], [no appreciable organomegaly] Ext: [no gross muscle atrophy], [RUE casted], [no contractures] Neuro: [ CN II-XI grossly intact], [no focal neuro deficits] Psych: [Alert], [oriented], [appropriate affect] #Double vision with unstable gait likely related to supratherapeutic Dilantin level #History of seizure disorder #Left radial and ulnar fracture #Elevated BUN #Elevated alkaline phosphatase #Hypothyroidism Her symtoms are likely related to supratherapeutic Dilantin levels. Less likely to be related to CVA. Patient be placed on fall and seizure precautions. Advanced neurochecks ordered. Telemetry monitoring. PT and OT will be consulted for futher management of this patient. Hold Dilantin and restart Tegretol. Patient advised to follow up with Dr. Barrera in the outpatient setting. Likely related to dehydration. Continue IV hydration overnight. Repeat BMP tomorrow morning. Restart Synthroid. DVT prophylaxis: [Heparin] Discussed with: [Patient, ED physician] Anticipated discharge: [2 days] Anticipated discharge place: [Home] A total of [35] minutes was spent on the care of this complex patient more than 50% of the time was spent in counseling and care coordination. Patient names her decision maker if she can't make decisions for herself. Patient would like to be full code. Past Medical History Past Medical History: Osteoarthritis (OA), Seizure Disorder, Thyroid Disorder Additional Past Medical History / Comment(s): Last seizure 2 months ago, R wrist fracture from fall (L knee "pops out"), hypothyroid. 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 Past Anesthesia/Blood Transfusion Reactions: No Reported Reaction Past Psychological History: No Psychological Hx Reported Additional Psychological History / Comment(s): Pt resides with her spouse. She has been using a cane or walker lately as needed. Pt has never driven, her spouse drives. Smoking Status: Never smoker Past Alcohol Use History: None Reported Past Drug Use History: None Reported - Past Family History Sister(s) Family Medical History: Cancer Additional Family Medical History / Comment(s): Breast cancer Father Family Medical History: Cancer Additional Family Medical History / Comment(s): Lung cancer Mother Family Medical History: Cancer Additional Family Medical History / Comment(s): Lung cancer Medications and Allergies Home Medications Medication Instructions Recorded Confirmed Type Phenytoin Sodium Extended 300 mg PO HS 07/27/14 04/13/22 History [Dilantin] carBAMazepine [TEGretol] 400 mg PO BID 07/27/14 04/13/22 History Levothyroxine Sodium [Synthroid] 75 mcg PO DAILY 01/02/16 04/13/22 History Phenytoin Sodium Extended 100 mg PO DAILY 01/02/16 04/13/22 History [Dilantin] Acetaminophen Tab [Tylenol] 325 mg PO Q4H PRN 04/13/22 04/13/22 History Allergies Allergy/AdvReac Type Severity Reaction Status Date / Time carbamazepine Allergy seizure Verified 04/13/22 12:05 phenobarbital Allergy blurred Verified 04/13/22 12:05 vision phenytoin Allergy seizure Verified 04/13/22 12:05 primidone [From Mysoline] Allergy seizures, Verified 04/13/22 12:05 blurred vision valproate sodium Allergy seizures Verified 04/13/22 12:05 [From Depakene] valproic acid [From Depakene] Allergy seizures Verified 04/13/22 12:05 hydromorphone HCl AdvReac jittery Verified 04/13/22 12:05 [From Dilaudid] artificial flavoring Allergy seizure Uncoded 04/13/22 11:04 aspirin Allergy seizures Uncoded 04/13/22 11:04 MSG,caffiene,sodium nitrates Allergy seizures Uncoded 04/13/22 11:04 narcotics AdvReac jittery Uncoded 04/13/22 11:04 Physical Exam Vitals: Vital Signs Temp Pulse Resp BP Pulse Ox 04/13/22 13:55 56 L 18 109/63 98 04/13/22 11:02 98 F 70 20 102/63 99 Intake and Output 04/13/22 04/13/22 04/13/22 06:59 14:59 22:59 Other: Weight 72.575 kg 72.575 kg Results CBC & Chem 7: 04/13/22 11:22 04/13/22 11:22 Labs: Abnormal Lab Results - Last 24 Hours (Table) 04/13/22 04/13/22 Range/Units : 11:22 Lymphocytes # 0.9 L (1.0-4.8) k/uL BUN 20 H (7-17) mg/dL Alkaline Phosphatase 175 H (38-126) U/L Thrombosis Risk Factor Assmnt - Choose All That Apply Any of the Below Risk Factors Present?: Yes Other Risk Factors: Yes Each Risk Factor Represents 2 Points: Age 61-74 years Other congenital or acquired thrombophilia - If yes, enter type in comment: No Thrombosis Risk Factor Assessment Total Risk Factor Score: 2 Thrombosis Risk Factor Assessment Level: Low Risk
--- NOTE | 2022-04-13 18:24 | P.CNNES ---
History of Present Illness Consult date: 04/13/22 Requesting physician: Kishor Tuttle Reason for Consult: Ataxia, diplopia History of Present Illness: Patient is a 67-year-old female with history of seizure disorder since childhood, came to the hospital today at 10:58 AM for one-month history of seeing intermittent double vision, and headaches. The double vision is not all the time, comes and goes, but seems to be getting worse. When she gets double vision, she gets a headache. The double vision typically occurs after she takes her morning medications. Patient's was also present, who also provided with a history. Patient suffered from a fall down stairs at age 3. She started having seizures after the fall. Patient used to have about 6-7 grand mal seizures a day. She used to take about 46 pills a day. She underwent right anterior temporal lobectomy in [place] in 1983. After that her frequency of seizures decreased, and now she is having seizures about 15 grand mal seizures a year. The last seizure was about 2 months ago. Patient does get an aura consisting of a laugh, which sometimes leads to a grand mal seizure. This aura lasts for about 15-30 seconds, occurs almost every day in the morning. However 99% of the time she does not lead to a seizure, only a few times she gets into a grand mal seizure. Patient states that she has been on same dose of Dilantin and Tegretol as mentioned below since 1983. She is not seeing a neurologist, as there would always try to adjust her medication which she does not like. Her medications refilled are performed by her primary physician. She denies starting any new medication. Patient has history of left knee surgery 2 years ago. The joint pops out of the socket at times. About a month ago she was walking, when the joint popped out of socket, and she braced herself with the right arm and suffered fracture of the wrist. She has right forearm and wrist in cast. Patient states that she has lost 30-40 pounds over the last 1-2 years. She eats limited, and works a lot in the backyard, which she claims caused weight loss. Vital signs on arrival blood pressure 102/63, pulse rate 70, temperature 98.0. CT head showed postsurgical changes. There appears to be encephalomalacia of the right temporal lobe, stable from 2013. Some minimal hypodensity in the periventricular regions may be chronic microvascular ischemic change. This is an interval change. Follow-up MRI can be performed as clinically indicated. I personally reviewed CT head and agree with the findings. No significant change from previous CT head from 2013. CTA of head and neck showed no flow-limiting s tenosis bilateral carotid bifurcations. Normal [place]. EKG shows sinus rhythm. Blood test shows normal CBC, PT/PTT, normal CMP. Dilantin is 24.4, Tegretol 6.3 (4-12). Patient's previous Dilantin level was around 11.3 in 2016. Patient's current medications includes Dilantin 100 mg in the morning and 300 mg at night. Patient states that she takes Dilantin only Saturday through Saturday, and on Saturday and Saturday she does not take Dilantin. She takes Tegretol 400 mg twice a day 7 days a week, levothyroxine. Patient denies any tobacco or alcohol use. Denies any hypertension or diabetes. Patient has no children. Review of Systems As mentioned above in HPI. All other review of systems reviewed, unremarkable. Patient does have mood problem. No chest pain, abdominal pain, nausea vomiting diarrhea. She does have headaches. Past Medical History Past Medical History: Osteoarthritis (OA), Seizure Disorder, Thyroid Disorder Additional Past Medical History / Comment(s): Last seizure 2 months ago, R wrist fracture from fall (L knee "pops out"), hypothyroid. 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 Past Anesthesia/Blood Transfusion Reactions: No Reported Reaction Past Psychological History: No Psychological Hx Reported Additional Psychological History / Comment(s): Pt resides with her spouse. She has been using a cane or walker lately as needed. Pt has never driven, her spouse drives. Smoking Status: Never smoker Past Alcohol Use History: None Reported Past Drug Use History: None Reported - Past Family History Sister(s) Family Medical History: Cancer Additional Family Medical History / Comment(s): Breast cancer Father Family Medical History: Cancer Additional Family Medical History / Comment(s): Lung cancer Mother Family Medical History: Cancer Additional Family Medical History / Comment(s): Lung cancer Medications and Allergies Home Medications Medication Instructions Recorded Confirmed Type Phenytoin Sodium Extended 300 mg PO HS 07/27/14 04/13/22 History [Dilantin] carBAMazepine [TEGretol] 400 mg PO BID 07/27/14 04/13/22 History Levothyroxine Sodium [Synthroid] 75 mcg PO DAILY 01/02/16 04/13/22 History Phenytoin Sodium Extended 100 mg PO DAILY 01/02/16 04/13/22 History [Dilantin] Acetaminophen Tab [Tylenol] 325 mg PO Q4H PRN 04/13/22 04/13/22 History Allergies Allergy/AdvReac Type Severity Reaction Status Date / Time carbamazepine Allergy seizure Verified 04/13/22 12:05 phenobarbital Allergy blurred Verified 04/13/22 12:05 vision phenytoin Allergy seizure Verified 04/13/22 12:05 primidone [From Mysoline] Allergy seizures, Verified 04/13/22 12:05 blurred vision valproate sodium Allergy seizures Verified 04/13/22 12:05 [From Depakene] valproic acid [From Depakene] Allergy seizures Verified 04/13/22 12:05 hydromorphone HCl AdvReac jittery Verified 04/13/22 12:05 [From Dilaudid] artificial flavoring Allergy seizure Uncoded 04/13/22 11:04 aspirin Allergy seizures Uncoded 04/13/22 11:04 MSG,caffiene,sodium nitrates Allergy seizures Uncoded 04/13/22 11:04 narcotics AdvReac jittery Uncoded 04/13/22 11:04 Physical Examination - Vital Signs Vital Signs: Vital Signs Temp Pulse Resp BP Pulse Ox 04/13/22 13:55 56 L 18 109/63 98 04/13/22 11:02 98 F 70 20 102/63 99 Intake and Output 04/13/22 04/13/22 04/13/22 06:59 14:59 22:59 Other: Weight 72.575 kg 72.575 kg Patient is an elderly female, in no acute distress. Patient is alert awake oriented to time place and person. Speech and language functions are normal. Attention, concentration and fund of knowledge is adequate. On cranial nerve examination, pupils are equal, round and reacting to light, visual reddy are full on confrontation, with no neglect on double simultaneous stimulation. Her extraocular muscles are intact with nystagmus notable only looking to the right side. Face is symmetric, tongue protrudes to the midline. Palatal elevation and sensation normal, hearing and shoulder shrug normal, facial sensation normal. On muscle strength testing, there is no pronator drift and the strength is normal in arms and legs distally and proximally. Right forearm not checked because of wrist fracture. Her right forearm and wrist is in a cast. Deep tendon reflexes are 1+ to 2+ and plantars are flat. Sensory to touch is equal with no neglect. Cerebellar function could not be checked because patient became very irritable, and did not cooperate with examination as mentioned below. Tone and bulk of muscles normal. Gait normal. On general examination, there is no carotid bruit or murmur, S1-S2 audible. Abdomen is soft nontender. No organomegaly, bowel sounds present. Chest is clear. Peripheral pulses not able to be checked due to reasons mentioned below. Patient while he was being examined, became somewhat very edgy, very irritable, then would not make eye contact. She became less cooperative during the examination, and after reflexes, I could not check further. Apparently she does have mood issues per her . Results - Laboratory Findings CBC and BMP: 04/13/22 11:22 08 11:22 Abnormal Lab Findings: Abnormal Labs 04/13/22 08 11:22 11:22 Lymphocytes # 0.9 L BUN 20 H Alkaline Phosphatase 175 H Assessment and Plan Assessment: * Dilantin toxicity. Patient's Dilantin level 24.4. Patient clinically has intermittent diplopia. 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 Patient's seizures are semi-controlled, occurring about 15 seizures a year at baseline. * History of right temporal lobectomy for medically intractable epilepsy. * Status post right wrist fracture a month ago. Plan: * Patient currently takes Tegretol 400 mg twice a day 7 days a week; and Dilantin 400 mg a day (100 mg a.m., 300 mg p.m.), only Saturday through Saturday. Patient's Dilantin toxicity could be related to her unintentional weight loss of about 30-40 pounds over last 1-2 years. * Tegretol level is therapeutic. Therefore we will continue Tegretol at current dose of 400 mg twice a day. * Regarding Dilantin, hold it tonight. Check level in the morning. Patient does not take Dilantin over the weekends. From Saturday, she can take Dilantin 400 mg on Saturday and Saturday (100 mg am and 300 mg pm), and 300 mg on Tuesdays and (100 mg am and 200 mg pm). She does not take Dilantin on Saturday and Saturday. * Recommend checking levels in 4 weeks. * Also suggest patient follow up with neurologist as an outpatient. * Long-term Dilantin and Tegretol can produce osteoporosis. Recommend patient undergo DEXA scan as an outpatient. If any evidence of osteoporosis, would recommend treatment for osteoporosis. * Dr. Randhawa will follow-up patient in the morning. Thank you for the consult.
[2022-04-13] MEDS: carBAMazepine 200 MG TAB PO SCH (20:16)
[2022-04-13] MEDS: HEPARIN SODIUM,PORCINE/PF 5,000 UNIT/0.5 ML SYRINGE SQ SCH (20:16)
[2022-04-14] MEDS ORDERED: LEVOTHYROXINE 75 MCG TAB PO SCH (06:30)
[2022-04-14] MEDS: carBAMazepine 200 MG TAB PO SCH (07:56)
[2022-04-14 07:57] VITALS: RESP 18; TEMP 98.4
[2022-04-14] MEDS: HEPARIN SODIUM,PORCINE/PF 5,000 UNIT/0.5 ML SYRINGE SQ SCH (07:57)
[2022-04-14 09:32] LABS: Carbamazepine (Tegretol) <3.0 ug/mL; Phenytoin (Dilantin) 15.6 ug/mL
[2022-04-14 11:47] VITALS: BP 96/57; PULSE 61
--- NOTE | 2022-04-14 12:09 | P.PN ---
Subjective Progress Note Date: 04/14/22 The patient is a 67-year-old female who is seen in neurologic follow- up on April 14, 2022, via teleneurology. This morning, the patient reports feeling well. She states that she is the one who handles her own medications. She denies taking excessive amounts of Dilantin. She does report a 30-40 pound weight loss. Per neurology consultation, done by Dr. Miner: The patient has a history of seizure disorder since childhood, came to the hospital today at 10:58 AM for one-month history of seeing intermittent double vision, and headaches. The double vision is not all the time, comes and goes, but seems to be getting worse. When she gets double vision, she gets a headache. The double vision typically occurs after she takes her morning medications. Patient's was also present, who also provided with a history. Patient suffered from a fall down stairs at age 3. She started having seizures after the fall. Patient used to have about 6-7 grand mal seizures a day. She used to take about 46 pills a day. She underwent right anterior temporal lobectomy in [place] in 1983. After that her frequency of seizures decreased, and now she is having seizures about 15 grand mal seizures a year. The last seizure was about 2 months ago. Patient does get an aura consisting of a laugh, which sometimes leads to a grand mal seizure. This aura lasts for about 15-30 seconds, occurs almost every day in the morning. However 99% of the time she does not lead to a seizure, only a few times she gets into a grand mal seizure. Patient states that she has been on same dose of Dilantin and Tegretol as mentioned below since 1983. She is not seeing a neurologist, as there would always try to adjust her medication which she does not like. Her medications refilled are performed by her primary physician. She denies starting any new medication Objective - Vital Signs Vital signs: Vital Signs Temp 98.4 F 04/14/22 07:52 Pulse 65 04/14/22 09:43 Resp 18 04/14/22 09:43 BP 103/57 04/14/22 07:52 Pulse Ox 98 04/14/22 07:52 FiO2 Intake & Output 04/13/22 04/14/22 04/14/22 18:59 06:59 18:59 Intake Total 20 10 Balance 20 10 Weight 72.575 kg Intake: IV 20 10 Invasive Line 1 10 Invasive Line 2 10 10 Oral 0 Other: Voiding Method Toilet Toilet # Voids 1 - Exam General: The patient is reclining in the bed. She is well-nourished, well- developed, in no acute distress. HEENT: Head is atraumatic, normocephalic. Fundus not visualized. There is no scleral icterus. Mucous membranes are moist. Extremities: The patient has a cast on her right forearm Neurological examination Mental status: The patient is awake, alert and oriented 3. Her speech is clear. Cranial nerves: 2-12 grossly intact Motor: Patient is able to move all 4 extremities without difficulty - Labs CBC & Chem 7: 04/13/22 11:22 04/13/22 11:22 Labs: Abnormal Lab Results - Last 24 Hours (Table) 04/13/22 04/13/22 Range/Units 11:22 11:22 Lymphocytes # 0.9 L (1.0-4.8) k/uL BUN 20 H (7-17) mg/dL Alkaline Phosphatase 175 H (38-126) U/L Assessment and Plan Assessment: 1. History of seizure disorder, admitted for symptoms of ataxia and diplopia- secondary to Dilantin toxicity 2. Status post temporal lobectomy for medically refractory seizure disorder 3. Recent fall with right arm fracture Plan: 1. The patient is neurologically stable for discharge 2. The patient should be discharged home on current dose of Tegretol. Dilantin dosing should be changed to 100 mg in the morning and 200 mg in the evening, Saturday through Saturday. Weekend Dilantin dosing can remain at current dosing of 100 mg daily 3. The patient should have repeat Dilantin level checked in 2-to 3 weeks. She should follow up with her family doctor, who is dispensing her antiepileptic medications 4. Consider following with a neurologist for perhaps tighter control of Dilantin level and/or seizure frequency Time with Patient: Less than 30 (spent 15 minutes with patient via telemedicine)
--- NOTE | 2022-04-14 12:26 | P.DS ---
Providers Date of admission: 04/13/22 14:41 Expected date of discharge: 04/14/22 Attending physician: Delon Ulloa MD Consults: 04/13/22 14:41 Consult Physician Urgent Consulting Provider: Elizabeth Garsia Consult Reason/Comments: Ataxia, Diplopia, Do you want consulting provider notified?: Yes Primary care physician: [facility] Course: Patient is a 67-year-old female with PMH of epilepsy and hypothyroidism presents the ED for constellation of symptoms. Patient reports blurry and double vision that has been ongoing for the past 4 weeks. She also reports gait instability with weakness over left > right side. She reports a fall 3 weeks ago that led to a radial and ulnar fracture of her right arm which was casted by Dr. Barrera. She denies any loss of consciousness or head trauma. She denies any confusion or slurred speech. She denies any headache, lower extremity edema, nausea or vomiting, fever or chills, cough, chest pain, shortness of breath, palpitations, changes in urination or bowel habits. Today, she went to go see her PCP, who urged her to come to the ED. In the ED, her vital signs were stable. CBC was unremarkable. Coagulation panel negative. CMP showed BUN of 20 and alkaline phosphatase 175. Troponin less than 0.012. Phenytoin level was 24.2. Carbamazepine level 6.3. Chest x ray was negative. CT brain showed post surgical changes, hypodensity in the periventricular regions that is interval change. Patient is admitted for double vision and gait instability with Neurology on consult. Her Dilantin was held. Repeat Dilantin levels went from 24.4-15.6. Her symptoms completely resolved by 04/14/2022. Neurology recommended continuing 400 mg of Dilantin by mouth every Saturday, 300 mg by mouth for Saturday and , hold Dilantin Saturday and Saturday. Patient was advised follow-up with her PCP within 1-2 days of discharge. Advised to follow-up with neurology within 1 week of discharge. Advised that she would need a Dilantin level rechecked in 4 weeks. Advised that she would need evaluation for osteoporosis with her PCP. Patient verbalized understanding of the plan. General: [non toxic], [no distress], [appears at stated age] Derm: [warm], [dry] Head: [atraumatic], [normocephalic], [symmetric] Eyes: [EOMI], [no lid lag], [anicteric sclera] Mouth: [no lip lesion], [mucus membranes moist] Cardiovascular: [S1S2 reg], [no murmur], [positive DT pulse bilateral] Lungs: [CTA bilateral], [no rhonchi, no rales] , [no accessory muscle use] Abdominal: [soft], [ nontender to palpation], [no guarding], [no appreciable organomegaly] Ext: [no gross muscle atrophy], [RUE casted], [no contractures] Neuro: [no focal neuro deficits] Psych: [Alert], [oriented], [appropriate affect] Dischage Diagnosis: #Double vision with unstable gait likely related to supratherapeutic Dilantin level #History of seizure disorder #Left radial and ulnar fracture #Elevated BUN #Elevated alkaline phosphatase #Hypothyroidism This complex discharge took about 35 minutes to complete. Pertinent Studies: CXR CT brain CTA head and neck Patient Condition at Discharge: Stable Plan - Discharge Summary Discharge Rx Participant: No New Discharge Prescriptions: Continue carBAMazepine [TEGretol] 400 mg PO BID Phenytoin Sodium Extended [Dilantin] 100 mg PO DAILY Levothyroxine Sodium [Synthroid] 75 mcg PO DAILY Acetaminophen Tab [Tylenol] 325 mg PO Q4H PRN PRN Reason: Pain Or Fever > 100.5 Phenytoin Sodium Extended [Dilantin] 300 mg PO HS #0 Discharge Medication List carBAMazepine [TEGretol] 400 mg PO BID 07/27/14 [History] Levothyroxine Sodium [Synthroid] 75 mcg PO DAILY 01/02/16 [History] Phenytoin Sodium Extended [Dilantin] 100 mg PO DAILY 01/02/16 [History] Acetaminophen Tab [Tylenol] 325 mg PO Q4H PRN 04/13/22 [History] Phenytoin Sodium Extended [Dilantin] 300 mg PO HS #0 04/14/22 [Rx] Follow up Appointment(s)/Referral(s): Crystal Basurto MD [REFERRING] - 1 Week Gage Sheldon DO [Primary Care Provider] - 1-2 days Activity/Diet/Wound Care/Special Instructions: Diet: Regular Follow up with your PCP within 1-2 days of discharge. Follow up with Neurology within 1 week of discharge. You will need a Dilantin level checked in 4 weeks, please see your PCP to get this test done. Take all medications as advised. Take Dilantin 400 mg by mouth Saturday and Saturday. Take Dilantin 300 mg by mouth Saturday and . Come back to the ED for worsening confusion, blurry vision, unstable gait, slurred speech, numbness/weakness/tingling of the extremities. Discharge Disposition: HOME SELF-CARE
== END 2022-04-14 13:04 | disposition home or self-care (01) ==
LOC: EC 10:58 → 3SCARD 14:41 → INTOOBSV 14:41 → 3SCARD 19:48 → UNDODISIN 04-14 13:04
PROVIDERS: ADMIT Internal Medicine; ATTEND Internal Medicine
DX: H53.2 Diplopia (principal); H53.8 Other visual disturbances; R26.89 Other abnormalities of gait and mobility; R53.1 Weakness; T42.0X5A Adverse effect of hydantoin derivatives, initial encounter; G40.909 Epilepsy, unspecified, not intractable, without status epilepticus; E03.9 Hypothyroidism, unspecified; R74.8 Abnormal levels of other serum enzymes; R94.4 Abnormal results of kidney function studies; S52.91XD Unspecified fracture of right forearm, subsequent encounter for closed fracture with routine healing; S52.201D Unspecified fracture of shaft of right ulna, subsequent encounter for closed fracture with routine healing; W19.XXXD Unspecified fall, subsequent encounter; Z79.890 Hormone replacement therapy; Z79.899 Other long term (current) drug therapy; Z88.5 Allergy status to narcotic agent; Z88.6 Allergy status to analgesic agent
CPT/HCPCS: 96361 ×2; 96372 ×2; 96360; 99285; 36415; 93005; 80156 ×2; 80053; 80185 ×2; 84484; 85025; 85610; 85730; 71046; 70496; 70450; 70498; G0378 ×2; Q9967; J1644 ×2

== ENCOUNTER → 2022-07-09 | Outpatient (CLI) | payer MEDICARE ==
--- NOTE | 2022-07-09 10:34 | BD ---
EXAMINATION TYPE: Axial Bone Density DATE OF EXAM: 07/09/2022 COMPARISON: BASELINE CLINICAL HISTORY: 67 years old Female. ICD-10 CODE: M84.80 DISORDER OF BON Height: 62.5 Weight: FRAX RISK QUESTIONS: History of Fracture in Adulthood: YES RISK FACTORS HISTORY OF: History of Wrist Fracture: YES When: 2021 Surgery to Spine YES TUMOR REMOVED When: 2011 Diet low in dairy products/other sources of calcium: YES Postmenopausal woman: YES Lost more than 2 inches in height since high school: YES Frequent falls: NO Hyperparathyroidism: NO Adrenal Insufficiency: NO MEDICATIONS: Thyroid Medications: YES Which medication: Levothyroxine How Lon YEARS Additional Medications: YES SEIZURE MEDS Additional History: EPILEPTIC,THYROID EXAM MEASUREMENTS: Bone mineral densitometry was performed using the [employer] System. Bone mineral density as measured about the Lumbar spine is: ----- L1-L4(G/cm2): 0.974 T Score Values are as follows: ----- L1: -2.1 ----- L2: -2.6 ----- L3: -1.6 ----- L4: -0.9 ----- L1-L4: -1.7 Bone mineral density BASELINE Bone mineral density about the R hip (g/cm2): 0.676 Bone mineral density about the L hip (g/cm2): 0.655 T Score values are as follows: -----R Neck: -2.5 -----L Neck: -2.4 -----R Total: -2.6 -----L Total: -2.8 Bone mineral density BASELINE FRAX%s: The graph provided illustrates a 22.5% chance for a major osteoporotic fx and a 5.2% chance f or the hips probability for fx in 10 years time. IMPRESSION: Osteoporosis (T Score less than -2.5). There is increased fracture risk and therapy is usually indicated based on age. Re-Screen 1-2 years. NOTE: T-SCORE=SD OF THE YOUNG ADULT MEAN.
--- NOTE | 2022-07-10 16:30 | MM ---
Reason for Exam: Screening (asymptomatic). Last screening mammogram was performed 12 month(s) ago. Patient History: Menarche at age 11. Patient has no children. Postmenopausal. Sister had breast cancer, age 30. Risk Values: Heather 5 year model risk: 3.6%. NCI Lifetime model risk: 12.6%. Prior Study Comparison: 06/05/2017 Bilateral Screening Mammogram, [facility]. 12/02/2018 Bilateral Screening Mammogram, [facility]. 07/06/2021 Bilateral Screening Mammogram, [facility]. Tissue Density: There are scattered fibroglandular densities. Findings: Analyzed By CAD. Benign calcifications in the left breast. No suspicious groups of microcalcifications, spiculated or lobular masses, architectural distortion or other secondary signs of malignancy are mammographically apparent. Overall Assessment: Benign, BI-RAD 2 Management: Screening Mammogram of both breasts in 1 year. A negative mammogram report should not preclude additional follow up of suspicious palpable abnormalities. Patient should continue monthly self breast exam. A clinical breast exam by your physician is recommended on an annual basis and results should be correlated with mammographic findings. Electronically signed and approved by: Deejay Mullins D.O. Radiologis
== END | disposition home or self-care (01) ==
LOC: RADMAMWWP 07:02
PROVIDERS: ATTEND Family Medicine
DX: Z12.31 Encounter for screening mammogram for malignant neoplasm of breast (principal); M81.0 Age-related osteoporosis without current pathological fracture; Z78.0 Asymptomatic menopausal state; Z80.3 Family history of malignant neoplasm of breast
CPT/HCPCS: 77063; 77067; 77080

== ENCOUNTER → 2022-08-09 | Outpatient (CLI) | payer MEDICARE ==
--- NOTE | 2022-08-09 12:37 | NM ---
EXAMINATION TYPE: NM bone 3 phase DATE OF EXAM: 08/09/2022 COMPARISON: NONE HISTORY: T84.84XA PAIN DUE TO INTERNAL ORTHOPEDIC PROSTH DE Left-sided knee pain Triple phase bone scintigraphy was performed following the injection of 22.6 mCi Tc 99m MDP. Immedia te images and 4 hours post injection images acquired. FINDINGS: Photopenic defect is seen of involving the bilateral knees compatible with bilateral total knee arthr oplasty. There is increased radiotracer accumulation involving the right tibial component relative to the left. Femoral components of demonstrate symmetric uptake. IMPRESSION: Increased radiotracer accumulation involving the right tibial component however this is discordant wi th the provided history of left knee pain.
== END | disposition home or self-care (01) ==
LOC: RADNMMAIN 07:06
PROVIDERS: ATTEND Orthopaedic Surgery
DX: T84.84XA Pain due to internal orthopedic prosthetic devices, implants and grafts, initial encounter (principal)
CPT/HCPCS: 78315; A9503

== ENCOUNTER → 2022-09-24 | Outpatient (CLI) | payer MEDICARE ==
--- NOTE | 2022-09-24 09:47 | XR ---
INDICATION: Patient age:Female; 67 years old; Reason for study: [id number]; [facility]. COMPARISON: CT brain 04/13/2022. TECHNIQUE: Multiple views of the facial bones. FINDINGS: There is no evidence of acute fracture or dislocation. Postsurgical changes of the right temporal bon e. The paranasal sinuses appear well aerated. The soft tissues are within normal limits. No radiopaq ue foreign body visualized. IMPRESSION: No radiographic evidence for acute fracture. If there is still clinical concern, consider further palma luation with CT maxillofacial.
--- NOTE | 2022-09-24 09:48 | XR ---
EXAMINATION TYPE: XR knee complete LT DATE OF EXAM: 09/24/2022 9:40 AM INDICATION: Patient age:Female; 67 years old; Reason for study: [id number]; [facility]. COMPARISON: Left knee radiograph dated TECHNIQUE: The Left knee(s) was examined in frontal, oblique, lateral projections. FINDINGS: Postsurgical changes from total left knee arthroplasty. Hardware appears intact with appr opriate alignment. No acute fracture or dislocation. No evidence for loosening or periprosthetic frac ture. Incidental fabella is present. No joint effusion or soft tissue edema. IMPRESSION: 1. No acute osseous pathology. 2. Postsurgical changes from total left knee arthroplasty. Hardware appears intact with appropriate p osition.
--- NOTE | 2022-09-24 09:49 | XR ---
EXAMINATION TYPE: XR hand complete LT DATE OF EXAM: 09/24/2022 9:40 AM INDICATION: Patient age:Female; 67 years old; Reason for study: [id number]; [facility]. COMPARISON: None TECHNIQUE: Frontal, lateral and oblique views of the left hand were obtained. FINDINGS: Normal alignment of the visualized joints. No acute osseous pathology is identified. No e vidence of soft tissue swelling. IMPRESSION: No acute osseous pathology.
== END | disposition home or self-care (01) ==
LOC: RADXRYALE 09:08
PROVIDERS: ATTEND Physician Assistant Medical
DX: S00.33XA Contusion of nose, initial encounter (principal); M79.642 Pain in left hand; M25.562 Pain in left knee; W01.0XXA Fall on same level from slipping, tripping and stumbling without subsequent striking against object, initial encounter; H57.13 Ocular pain, bilateral; Z96.652 Presence of left artificial knee joint
CPT/HCPCS: 70140

== ENCOUNTER → 2023-04-29 | Outpatient (CLI) | payer MEDICARE ==
--- NOTE | 2023-04-29 12:51 | XR ---
EXAMINATION TYPE: XR ribs RT w pa chest xray DATE OF EXAM: 04/29/2023 11:39 AM INDICATION: Patient age:Female; 68 years old; Reason for study: [id number] CHEST PAIN,RUQ PAIN; [facility]. COMPARISON: 04/13/2022 TECHNIQUE: Frontal and oblique views of the right ribs with frontal chest radiograph. FINDINGS: The ribs have a normal appearance. No evidence of fracture. Overall, the lungs are clear. The cardiac silhouette is normal in size. The remaining osseous structures are intact. Right upper quadrant cholecystectomy clips. IMPRESSION: No acute osseous pathology.
== END | disposition home or self-care (01) ==
LOC: RADXRYALE 11:24
PROVIDERS: ATTEND Physician Assistant Medical
DX: R07.89 Other chest pain (principal); R10.11 Right upper quadrant pain

== ENCOUNTER → 2023-07-05 | Outpatient (CLI) | payer MEDICARE ==
--- NOTE | 2023-07-05 20:27 | XR ---
EXAMINATION TYPE: XR lumbosacral spine min 4V DATE OF EXAM: 07/05/2023 Comparison: 12/03/2017 Clinical History: 68-year-old female [id number] DDD Findings: Osteopenia. Moderate degenerative disc disease throughout. Addition the lower thoracic spine. Advance d hypertrophic facet arthropathy throughout. Degenerative grade 1 retrolisthesis L1-L2 and L2-L3. Grade 1, nearly grade 2 anterolisthesis L4-L5. V ertebral body heights are preserved. No pars interarticularis defect seen. Cholecystectomy clips. 5 l umbar type vertebral bodies. Impression: 1. [id number]-[id number] degenerative disc disease throughout progressed from 2018. 2. Advanced hypertrophic facet arthropathy redemonstrated. Degenerative grade 1 retrolisthesis L1-L2 and L2-L3. Grade 1, nearly grade 2 anterolisthesis at L4-L5. 3. No vertebral compression collapse. 4. Suggestion of DISH in the lower thoracic spine.
== END | disposition home or self-care (01) ==
LOC: RADXRYALE 14:34
PROVIDERS: ATTEND Physician Assistant Medical
DX: M51.36 Other intervertebral disc degeneration, lumbar region (principal); M43.16 Spondylolisthesis, lumbar region; M47.816 Spondylosis without myelopathy or radiculopathy, lumbar region
CPT/HCPCS: 72110

== ENCOUNTER → 2023-07-10 | Outpatient (CLI) | payer MEDICARE ==
--- NOTE | 2023-07-10 08:01 | MM ---
Reason for Exam: Screening (asymptomatic). Last screening mammogram was performed 12 month(s) ago. Patient History: Menarche at age 11. Patient has no children. Postmenopausal. Sister had breast cancer, age 30. Risk Values: Heather 5 year model risk: 3.6%. NCI Lifetime model risk: 12.1%. Prior Study Comparison: 06/04/2016 Bilateral Screening Mammogram, [facility]. 06/05/2017 Bilateral Screening Mammogram, [facility]. 12/02/2018 Bilateral Screening Mammogram, [facility]. 07/06/2021 Bilateral Screening Mammogram, [facility]. 07/09/2022 Bilateral MG 3D screening mammo w/cad, [facility]. Tissue Density: The breast tissue is heterogeneously dense. This may lower the sensitivity of mammography. Findings: Analyzed By CAD. There is no suspicious group of microcalcifications or new suspicious mass in either breast. Benign calcifications within both breasts. Overall Assessment: Benign, BI-RAD 2 Management: Screening Mammogram of both breasts in 1 year. A clinical breast exam by your physician is recommended on an annual basis and results should be correlated with mammographic findings. Note on Heather scores and lifetime risk: 1. A Heather score greater than 3% is considered moderate risk. If this is the case, consider specialist referral to assess eligibility for a risk reducing agent. If overall lifetime risk for the development of breast cancer is 20% or higher, the patient may qualify for future screening with alternating mammogram and breast MRI. Electronically signed and approved by: Hasmukh Wells D.O.
== END | disposition home or self-care (01) ==
LOC: RADMAMWWP 06:49
PROVIDERS: ATTEND Family Medicine
DX: Z12.31 Encounter for screening mammogram for malignant neoplasm of breast (principal); Z78.0 Asymptomatic menopausal state; Z80.3 Family history of malignant neoplasm of breast
CPT/HCPCS: 77063; 77067

== ENCOUNTER → 2023-08-23 | Outpatient (CLI) | payer MEDICARE ==
--- NOTE | 2023-08-23 13:18 | CT ---
EXAMINATION TYPE: CT thoracic spine wo con CT DLP: 453.2 mGycm, Automated exposure control for dose reduction was used. DATE OF EXAM: 08/23/2023 9:29 AM COMPARISON: None. CLINICAL INDICATION:Female, 68 years old with history of M48.062 SPINAL STENOSIS; PHH, mass on t-spin e TECHNIQUE: Axial images of the thoracic spine were obtained without contrast. Coronal and sagittal re formats were performed. FINDINGS: Multilevel degeneration changes throughout the spine. There is facet joint arthropathy dis c space narrowing and osteophyte formation. Bridging syndesmophytes are also present along the anteri or longitudinal ligament of the lower thoracic spine. There is scattered presumably vertebral body he mangiomas versus focal fat with trabecular thickening involving T11 and T6. There is no evidence of f racture visualized. No significant neural foraminal stenosis is identified in the thoracic spine are visualized other levels. Postsurgical changes in the lower spine with laminectomy change at T11 and T12. No mass visualized on noncontrast CT imaging. 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 Mild peripelvic renal cysts on the left. The gallbladder may be surgically absent. IMPRESSION: 1. Postsurgical changes to the lower spine at T11 and T12 without evidence of mass on noncontrast CT imaging. Consider MRI with IV contrast if this concern for mass. There were no priors to compare to. 2. Moderate degeneration changes throughout the spine without evidence for significant neural forami nal or spinal canal stenosis.
== END | disposition home or self-care (01) ==
LOC: RADCTMAIN 08:32
PROVIDERS: ATTEND Physical Medicine & Rehabilitation
DX: M47.814 Spondylosis without myelopathy or radiculopathy, thoracic region (principal); M48.062 Spinal stenosis, lumbar region with neurogenic claudication; M43.16 Spondylolisthesis, lumbar region; M47.816 Spondylosis without myelopathy or radiculopathy, lumbar region; Z98.890 Other specified postprocedural states
CPT/HCPCS: 72128

== ENCOUNTER → 2024-01-13 | Outpatient (CLI) | payer MEDICARE ==
--- NOTE | 2024-01-13 11:14 | XR ---
EXAMINATION TYPE: XR thoracic spine complete DATE OF EXAM: 01/13/2024 CLINICAL HISTORY: pain TECHNIQUE: Frontal, lateral, and swimmer's view of thoracic spine are obtained. COMPARISON: None. FINDINGS: Thoracic spine show satisfactory alignment without evidence of acute fracture or dislocatio n. Curvature convex to the right. Vertebral body heights are preserved. Disc spaces are moderately na rrowed. Visualized ribs are unremarkable. IMPRESSION: No acute fracture or dislocation is seen in the thoracic spine. ICD 10 NO FRACTURE, INIT IAL EVALUATION
--- NOTE | 2024-01-13 11:36 | XR ---
EXAMINATION TYPE: XR ribs LT w pa chest xray DATE OF EXAM: 01/13/2024 COMPARISON: NONE HISTORY: Pain TECHNIQUE: Single view of the chest 4 views of the ribs are submitted. FINDINGS: The lungs are clear. No Evidence for pneumothorax. No evidence for focal contusion. Medi astinal structures are midline. Evaluation of the ribs fails to demonstrate evidence for displaced r ib fracture or secondary sign of rib fracture. IMPRESSION: Negative study
== END | disposition home or self-care (01) ==
LOC: RADXRYALE 10:41
PROVIDERS: ATTEND Physician Assistant Medical
DX: R07.89 Other chest pain (principal); M54.6 Pain in thoracic spine
CPT/HCPCS: 72072

== ENCOUNTER 2024-03-19 11:11 | Emergency (ER) | payer MEDICARE ==
[2024-03-19 11:23] VITALS: RESP 16
[2024-03-19 11:53] LABS: Basophils # (A) 0.1 k/uL (0-0.2); Basophils % (A) 1 %; Eosinophils # (A) 0.1 k/uL (0-0.7); Eosinophils % (A) 2 %; HCT 40.8 % (34.0-46.0); HGB 13.4 gm/dL (11.4-16.0); Lymphocytes % (A) 20 %; MCH 32.1 pg (25.0-35.0); MCV 97.2 fL (80.0-100.0); Mean Platelet Volume 7.5; Monocytes # (A) 0.3 k/uL (0-1.0); Monocytes % (A) 6 %; Neutrophils # (A) 3.4 k/uL (1.3-7.7); Neutrophils % (A) 69 %; Platelet Count 223 k/uL (150-450); RBC 4.19 m/uL (3.80-5.40); RDW 12.5 % (11.5-15.5); WBC 4.9 k/uL (3.8-10.6)
[2024-03-19 12:10] LABS: ALT 20 U/L (4-34); AST 27 U/L (14-36); African American GFR (CKD) >90 (>60 ml/min/1.73 sqM); Albumin 4.5 g/dL (3.5-5.0); Alkaline Phosphatase 133 U/L (38-126); Anion Gap 9 mmol/L; Blood Urea Nitrogen 27 mg/dL (7-17); Calcium 9.6 mg/dL (8.4-10.2); Carbon Dioxide 20 mmol/L (22-30); Chloride 114 mmol/L (98-107); Glucose 107 mg/dL (74-99); Non-African American GFR(CKD) 90 (>60 ml/min/1.73 sqM); Phenytoin (Dilantin) 10.4 ug/mL; Potassium 3.8 mmol/L (3.5-5.1); Sodium 143 mmol/L (137-145); Total Bilirubin 0.3 mg/dL (0.2-1.3); Total Protein 7.3 g/dL (6.3-8.2)
--- NOTE | 2024-03-19 12:17 | CT ---
EXAMINATION TYPE: CT brain cspine wo con, CT facial bones wo con CT DLP: 1139.4 mGycm, Automated exposure control for dose reduction was used. DATE OF EXAM: 03/19/2024 12:01 PM COMPARISON: Bone radiograph 09/24/2022, CT brain 04/13/2022 CLINICAL INDICATION:Female, 69 years old with history of pain; Fall (accession [id number]), Fall, bruis ing LT eye (accession [id number]) TECHNIQUE: Brain: Multiple axial CT images of the brain were obtained without IV contrast. Cspine: Axial CT images from the skull base to the inferior aspect of T2 we obtained without intraven ous contrast. Coronal and sagittal reformatted images were also reviewed. Facial bones; axial CT images of the facial bones were obtained without contrast and soft tissue and bone windows. Coronal and sagittal reformatted images were also reviewed. FINDINGS: Brain: Extra-axial spaces: No abnormal extra-axial fluid collections. Ventricular system: Within normal limits Cerebral parenchyma: Mild cerebral volume loss. Encephalomalacia identified within the right middle c ranial fossa again. No acute intraparenchymal hemorrhage or mass effect. The calderon-white junction is well differentiated. Cerebellum: Unremarkable. Mass effect: No evidence of midline shift. Intracranial vasculature: Atherosclerotic calcifications of the intracranial vessels. Soft tissues: Normal. Calvarium/osseous structures: No acute depressed skull fracture. Right frontoparietal craniotomy estrella ges. Small right temporal craniotomy changes. Visualized orbits: Orbital contents are intact. Cervical spine: Fracture: None. Osseous structures: Multilevel degenerative disc disease changes with endplate spurring and disc oste ophyte complex's. Vertebral alignment: Degenerative grade 1 anterolisthesis of C3 on C4 and C5 on C6. Spinal canal/Neural Foramina: Disc osteophyte complexes at C6-C7 with at least mild spinal canal sten osis. Additional disc osteophyte complex at C5-C6 without significant central canal stenosis. Facet j oint uncovertebral joint arthropathy scattered throughout the cervical spine with varying degrees of neural foraminal stenosis. Multilevel ligamentum flavum flavum calcifications. Neck soft tissues: Prevertebral soft tissues are within normal limits. Other: The airway is patent. The lung apices are clear. Facial Bones: There is no evidence of fracture, subluxation, or dislocation. Left infraorbital/cheek soft tissue sw elling/hematoma measuring up to 9 mm in thickness. The orbital contents are unremarkable. The tempora l-mandibular joints appear symmetric. The visualized portion of the paranasal sinuses appear clear. T he mastoid air cells are clear. Hypoplasia of the right mastoid air cells. Cerumen in the left exter nal auditory canal. IMPRESSION: 1. No acute intracranial process. 2. Postsurgical changes of the right cranial bones with stable right temporal lobe encephalomalacia. 3. No evidence of cervical spine fracture. 4. Mild multilevel degenerative disc disease and facet arthropathy. 5. Left infraorbital/cheek soft tissue hematoma.
--- NOTE | 2024-03-19 12:19 | XR ---
EXAMINATION TYPE: XR shoulder complete LT DATE OF EXAM: 03/19/2024 11:58 AM INDICATION: Patient age:Female; 69 years old; Reason for study: pain; COMPARISON: None TECHNIQUE: The left shoulder was examined in AP, internally rotated and scapular Y projections. . FINDINGS: No evidence of acute osseous pathology, joint dislocation, or soft tissue swelling. Mild AC joint art hropathy. Diffuse bone demineralization. The remaining portions of the visualized chest are unremarka ble. IMPRESSION: 1. No acute osseous pathology. 2. Mild AC joint arthropathy.
[2024-03-19] MEDS: SODIUM CHLORIDE 0.9% 1,000 ML IV STA (12:20)
[2024-03-19] MEDS: ACETAMINOPHEN TAB 325 MG TAB PO STA (12:28)
--- NOTE | 2024-03-19 13:01 | ED ---
Seizure HPI - General Chief Complaint: Seizure Stated Complaint: Seizure Time Seen by Provider: 03/19/24 11:16 Source: patient, EMS, RN notes reviewed Mode of arrival: EMS Limitations: no limitations - History of Present Illness Initial Comments: 69-year-old female presents emergency department chief complaint of head injury. Patient reportedly had a seizure and hit her head. Patient reports that she had leg pain prior to this and states that she has issue with sciatica which has been ongoing followed by physicians currently. Patient states this was given her issues she went to get down but reported fell and then had a seizure is unclear what happened first. Patient does have a history of seizures taking her medications as directed she was placed on soft collar by EMS and found to have a large left periorbital hematoma - Related Data Home Medications Medication Instructions Recorded Confirmed carBAMazepine [TEGretol] 400 mg PO BID 07/27/14 03/19/24 Levothyroxine Sodium [Synthroid] 75 mcg PO DAILY 01/02/16 03/19/24 Phenytoin Sodium Extended 100 mg PO BID@0630,1200 01/02/16 03/19/24 [Dilantin] Ibuprofen [Motrin] 800 mg PO TID PRN 03/19/24 03/19/24 Multivitamins, Thera [Multivitamin 1 tab PO DAILY 03/19/24 03/19/24 (formulary)] Phenytoin Sodium Extended 200 mg PO HS 03/19/24 03/19/24 [Dilantin] Allergies Allergy/AdvReac Type Severity Reaction Status Date / Time carbamazepine AdvReac seizure Verified 03/19/24 13:02 hydromorphone HCl AdvReac jittery Verified 03/19/24 13:02 [From Dilaudid] phenobarbital AdvReac blurred Verified 03/19/24 13:02 vision phenytoin AdvReac seizure Verified 03/19/24 13:02 primidone [From Mysoline] AdvReac seizures, Verified 03/19/24 13:02 blurred vision valproate sodium AdvReac seizures Verified 03/19/24 13:02 [From Depakene] valproic acid [From Depakene] AdvReac seizures Verified 03/19/24 13:02 artificial flavoring AdvReac seizure Uncoded 03/19/24 13:02 aspirin AdvReac seizures Uncoded 03/19/24 13:02 MSG,caffiene,sodium nitrates AdvReac seizures Uncoded 03/19/24 13:02 narcotics AdvReac jittery Uncoded 03/19/24 13:02 Review of Systems ROS Statement: Those systems with pertinent positive or pertinent negative responses have been documented in the HPI. ROS Other: All systems not noted in ROS Statement are negative. Past Medical History Past Medical History: Osteoarthritis (OA), Seizure Disorder, Thyroid Disorder Additional Past Medical History / Comment(s): Last seizure 2 months ago, R wrist fracture from fall (L knee "pops out"), hypothyroid. 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 Past Anesthesia/Blood Transfusion Reactions: No Reported Reaction Past Psychological History: No Psychological Hx Reported Smoking Status: Never smoker Past Alcohol Use History: None Reported Past Drug Use History: None Reported - Past Family History Sister(s) Family Medical History: Cancer Additional Family Medical History / Comment(s): Breast cancer Father Family Medical History: Cancer Additional Family Medical History / Comment(s): Lung cancer Mother Family Medical History: Cancer Additional Family Medical History / Comment(s): Lung cancer General Exam Limitations: no limitations General appearance: alert, in no apparent distress Head exam: Present: atraumatic, normocephalic, normal inspection Eye exam: Present: normal appearance, PERRL, EOMI, periorbital swelling, periorbital tenderness (Ecchymosis, swelling noted to left). Absent: scleral icterus, conjunctival injection ENT exam: Present: normal exam, mucous membranes moist Neck exam: Present: normal inspection. Absent: tenderness, meningismus, full ROM (Patient in soft collar), lymphadenopathy Respiratory exam: Present: normal lung sounds bilaterally. Absent: respiratory distress, wheezes, rales, rhonchi, stridor Cardiovascular Exam: Present: regular rate, normal rhythm, normal heart sounds. Absent: systolic murmur, diastolic murmur, rubs, gallop, clicks GI/Abdominal exam: Present: soft, normal bowel sounds. Absent: distended, tenderness, guarding, rebound, rigid Neurological exam: Present: alert, oriented X3 Skin exam: Present: warm, dry, intact, normal color. Absent: rash Course Vital Signs 03/19/24 03/19/24 11:14 13:26 Temperature 98.8 F 98.3 F Pulse Rate 88 79 Respiratory 16 16 Rate Blood Pressure 123/75 129/69 O2 Sat by Pulse 97 99 Oximetry Medical Decision Making - Medical Decision Making Was pt. sent in by a medical professional or institution (, [facility], PELLET PRESS OPERATOR, urgent care, hospital, or longterm...) When possible be specific @ -No Did you speak to anyone other than the patient for history (EMS, parent, family, police, friend...)? What history was obtained from this source @ -No Did you review nursing and triage notes (agree or disagree)? Why? @ -I reviewed and agree with nursing and triage notes Were old charts reviewed (outside hosp., previous admission, EMS record, old EKG, old radiological studies, urgent care reports/EKG's, longterm records)? Report findings @ -No old charts were reviewed Differential Diagnosis (chest pain, altered mental status, abdominal pain women, abdominal pain men, vaginal bleeding, weakness, fever, dyspnea, syncope, headache, dizziness, GI bleed, back pain, seizure, CVA, palpatations, mental health, musculoskeletal)? @ -Differential Seizure: Recurrent seizure disorder, febrile seizure, alcohol withdrawal, stimulants, meningitis, encephalitis, intercranial hemorrhage, intracranial tumor, stroke, eclampsia, thyrotoxicosis, hypocalcemia, hyponatremia, hypernatremia, hypo magnesemia, psychogenic, this is not meant to be an all-inclusive list. EKG interpreted by me (3pts min.). @ -As above X-rays interpreted by me (1pt min.). @ -X-ray left elbow no acute fracture CT interpreted by me (1pt min.). @ -CT brain, C-spine shows no acute intracranial hemorrhage or mass effect no cervical fracture U/S interpreted by me (1pt. min.). @ -None done What testing was considered but not performed or refused? (CT, X-rays, U/S, labs)? Why? @ -None What meds were considered but not given or refused? Why? @ -None Did you discuss the management of the patient with other professionals (professionals i.e. , PA, PELLET PRESS OPERATOR, lab, RT, psych nurse, social services designee, newswriter, teacher, health promotion officer, wrapper caser)? Give summary @ -No Was smoking cessation discussed for >3mins.? @ -No Was critical care preformed (if so, how long)? @ -No Were there social determinants of health that impacted care today? How? (Homelessness, low income, unemployed, alcoholism, drug addiction, transportation, low edu. Level, literacy, decrease access to med. care, assisted, rehab)? @ -No Was there de-escalation of care discussed even if they declined (Discuss DNR or withdrawal of care, Hospice)? DNR status @ -No What co-morbidities impacted this encounter? (DM, HTN, Smoking, COPD, CAD, Cancer, CVA, ARF, Chemo, Hep., AIDS, mental health diagnosis, sleep apnea, morbid obesity)? @ -Seizure Was patient admitted / discharged? Hospital course, mention meds given and route, prescriptions, significant lab abnormalities, going to OR and other pertinent info. @ -Discharge patient presented after seizure, fall, facial injury CT was negative patient laboratory studies revealed no significant findings. Patient was updated on results will be discharged in stable condition return parameters discussed Undiagnosed new problem with uncertain prognosis? @ -No Drug Therapy requiring intensive monitoring for toxicity (Heparin, Nitro, Insulin, Cardizem)? @ -No Were any procedures done? @ -No Diagnosis/symptom? @ -Fall, seizure, facial contusion Acute, or Chronic, or Acute on Chronic? @ -Acute Uncomplicated (without systemic symptoms) or Complicated (systemic symptoms)? @ -Complicated Side effects of treatment? @ -No Exacerbation, Progression, or Severe Exacerbation? @ -No Poses a threat to life or bodily function? How? (Chest pain, [place], [place], pneumonia, PE, COPD, DKA, ARF, appy, cholecystitis, CVA, Diverticulitis, Homicidal, Suicidal, threat to staff... and all critical care pts) @ -No - Lab Data Result diagrams: 03/19/24 11:45 03/19/24 11:45 Lab Results 03/19/24 03/19/24 Range/Units 11:45 11:45 WBC 4.9 (3.8-10.6) k/uL RBC 4.19 (3.80-5.40) m/uL Hgb 13.4 (11.4-16.0) gm/dL Hct 40.8 (34.0-46.0) % MCV 97.2 (80.0-100.0) fL MCH 32.1 (25.0-35.0) pg MCHC 33.0 (31.0-37.0) g/dL RDW 12.5 (11.5-15.5) % Plt Count 223 (150-450) k/uL MPV 7.5 Neutrophils % 69 % Lymphocytes % 20 % Monocytes % 6 % Eosinophils % 2 % Basophils % 1 % Neutrophils # 3.4 (1.3-7.7) k/uL Lymphocytes # 1.0 (1.0-4.8) k/uL Monocytes # 0.3 (0-1.0) k/uL Eosinophils # 0.1 (0-0.7) k/uL Basophils # 0.1 (0-0.2) k/uL Sodium 143 (137-145) mmol/L Potassium 3.8 (3.5-5.1) mmol/L Chloride 114 H (98-107) mmol/L Carbon Dioxide 20 L (22-30) mmol/L Anion Gap 9 mmol/L BUN 27 H (7-17) mg/dL Creatinine 0.69 (0.52-1.04) mg/dL Est GFR (CKD-EPI)AfAm >90 (>60 ml/min/1.73 sqM) Est GFR (CKD-EPI)NonAf 90 (>60 ml/min/1.73 sqM) Glucose 107 H (74-99) mg/dL Calcium 9.6 (8.4-10.2) mg/dL Magnesium 2.0 (1.6-2.3) mg/dL Total Bilirubin 0.3 (0.2-1.3) mg/dL AST 27 (14-36) U/L ALT 20 (4-34) U/L Alkaline Phosphatase 133 H (38-126) U/L Total Protein 7.3 (6.3-8.2) g/dL Albumin 4.5 (3.5-5.0) g/dL Phenytoin 10.4 ug/mL - EKG Data -: EKG Interpreted by Oh EKG Comments: EKG performed at 11: 27 sinus rhythm rate of 74 MO 197 QRS 105 QT/QTc 391/418 Disposition Clinical Impression: Periorbital hematoma of left eye, Seizure, Fall Disposition: HOME SELF-CARE Condition: Stable Instructions (If sedation given, give patient instructions): Recurrent Seizures in Adults (ED) Additional Instructions: Please return to the Emergency Department if symptoms worsen or any other concerns. Is patient prescribed a controlled substance at d/c from ED?: No Referrals: Gage Sheldon DO [Primary Care Provider] - 1-2 days Time of Disposition: 13:01
[2024-03-19 13:27] VITALS: BP 129/69; PULSE 79; TEMP 98.3
[2024-03-19 18:55] LABS: Carbamazepine (Tegretol) 4.5 UG/ML (4.0-12.0)
== END 2024-03-19 13:37 | disposition home or self-care (01) ==
LOC: EC 11:11
DX: S00.12XA Contusion of left eyelid and periocular area, initial encounter (principal); R56.9 Unspecified convulsions; Z88.5 Allergy status to narcotic agent; Z88.8 Allergy status to other drugs, medicaments and biological substances; Z88.6 Allergy status to analgesic agent; Z90.49 Acquired absence of other specified parts of digestive tract; W01.10XA Fall on same level from slipping, tripping and stumbling with subsequent striking against unspecified object, initial encounter
CPT/HCPCS: 36415; 70450; 70486; 72125; 80053; 80156; 80185; 83735; 85025; 93005; 96360; 99285

== ENCOUNTER → 2025-01-12 | Outpatient (CLI) | payer MEDICARE ==
--- NOTE | 2025-01-12 08:50 | MM ---
Reason for Exam: Screening (asymptomatic). Last mammogram was performed 1 year(s) and 6 month(s) ago. Patient History: Menarche at age 11. Patient has no children. Postmenopausal. Sister had breast cancer, age 30. Risk Values: Heather 5 year model risk: 3.7%. NCI Lifetime model risk: 11.6%. Prior Study Comparison: 07/06/2021 Bilateral Screening Mammogram, [facility]. 07/09/2022 Bilateral MG 3D screening mammo w/cad, [facility]. 07/10/2023 Bilateral MG 3D screening mammo w/cad, [facility]. Tissue Density: The breasts are heterogeneously dense, which may obscure small masses. Findings: Analyzed By CAD. There are several small benign-appearing round calcifications scattered throughout the left breast redemonstrated. There is no suspicious group of microcalcifications or new suspicious mass in either breast. Overall Assessment: Benign, BI-RAD 2 Management: Screening Mammogram of both breasts in 1 year. . Patient should continue monthly self-breast exams. A clinical breast exam by your physician is recommended on an annual basis. This exam should not preclude additional follow-up of suspicious palpable abnormalities. Note on Heather scores and lifetime risk: 1. A Heather score greater than 3% is considered moderate risk. If this is the case, consider specialist referral to assess eligibility for a risk reducing agent. 2. If overall lifetime risk for the development of breast cancer is 20% or higher, the patient may qualify for future screening with alternating mammogram and breast MRI. [facility], , 01/12/2025 8:47 AM. Electronically signed and approved by: Francois Christopher M.D.
--- NOTE | 2025-01-12 09:01 | BD ---
EXAMINATION TYPE: Axial Bone Density DATE OF EXAM: 01/12/2025 CLINICAL HISTORY: 69 years old Female. ICD-10 CODE: M81.0 AGE RELATED , Additional History: Height: 62.5 Weight: 146 FRAX RISK QUESTIONS: Family History (Parent hip fracture): no History of Fracture in Adulthood: no Secondary Osteoporosis: no RISK FACTORS HISTORY OF: Surgery to Spine/Hip(right/left)/Wrist (right/left): no MEDICATIONS: Thyroid Medications: yes Which medication: Levothyroxine How Lon+ years Osteoporosis Medications: no EXAM MEASUREMENTS: Bone mineral densitometry was performed using the [employer] System. Bone mineral density as measured about the Lumbar spine is: ----- L1-L4(G/cm2): 0.930 T Score Values are as follows: ----- L1: -2.4 ----- L2: -3.7 ----- L3: -1.8 ----- L4: -0.9 ----- L1-L4: -2.1 Z Score Values are as follows: ----- L1: -0.8 ----- L2: -2.1 ----- L3: -0.2 ----- L4: 0.7 ----- L1-L4: -05 Bone mineral density has: Decreased -0.2% since study of: 07/09/2022 Bone mineral density about the R hip (g/cm2): 0.644 Bone mineral density about the L hip (g/cm2): 0.682 T Score values are as follows: -----R Neck: -3.0 -----L Neck: -2.6 -----R Total: -2.9 -----L Total: -2.6 Z Score values are as follows: -----R Neck: -1.4 -----L Neck: -1.0 -----R Total: -1.5 -----L Total: -1.2 Bone mineral density has: Decreased -0.3% since study of: 07/09/2022 FRAX%s: The graph provided illustrates a 18.5% chance for a major osteoporotic fx and a 5.9% chance f or the hips probability for fx in 10 years time. IMPRESSION: Osteoporosis (T Score less than -2.5). There is increased fracture risk and therapy is usually indicated based on age. Re-Screen 1-2 years. NOTE: T-SCORE=SD OF THE YOUNG ADULT MEAN. [facility], , 01/12/2025 8:59 AM
== END | disposition home or self-care (01) ==
LOC: RADMAMWWP 07:02
PROVIDERS: ATTEND Family Medicine
DX: Z12.31 Encounter for screening mammogram for malignant neoplasm of breast (principal); M81.0 Age-related osteoporosis without current pathological fracture; R92.333 Mammographic heterogeneous density, bilateral breasts; R92.1 Mammographic calcification found on diagnostic imaging of breast; Z78.0 Asymptomatic menopausal state; Z80.3 Family history of malignant neoplasm of breast
CPT/HCPCS: 77067; 77080